=== PATIENT | female | born 1930 | race Two or more races ===

== ENCOUNTER 2019-03-04 10:40 | Outpatient (CLI) | payer MEDICARE, MEDICAID ==
--- NOTE | 2019-03-04 13:43 | Diagnostic Imaging Report ---
Indication: Neck pain. Technique: Continuous helical imaging of the neck was obtained transaxially from the skull base to the upper thoracic spine. 2-D coronal and sagittal reformatted images were obtained. Total Dose length Product (DLP): 595.[address] Dose Index Volume (CTDIvol): 19.21 mGy Comparison: None Findings: The aerodigestive tract appear symmetric and essentially normal. There is no obvious mass identified. There is some asymmetry at the level of the oral pharynx which may be positional in nature as the patient's head is turned toward the left side. The head and neck are not completely symmetric on this study. The epiglottis and aryepiglottic folds appear normal. The parapharyngeal fat appear symmetric. There is no adenopathy. The parotid and submandibular glands and spaces are unremarkable. Some degenerative disease of the cervical spine noted. Calcification of the carotid bifurcations demonstrated within the neck. The larynx and subglottic airway appear clear. There is a rim calcified lesion in the right thyroid lobe measuring about 1.2 cm. This may be further evaluated with ultrasound if needed. The cervical, visualized portion of the esophagus is grossly unremarkable. The aorta is mildly calcified. Lung apices appear clear. IMPRESSION: Essentially negative noncontrast CT of the neck. No definite findings to account for the given history of dysphagia on this examination. 1.2 cm heavily calcified right thyroid nodule or cyst. Atherosclerotic vascular disease The CT scanner at [facility] is accredited by the [employer] and the scans are performed using dose optimization techniques as appropriate to a performed exam including Automatic Exposure control.
== END 2019-03-04 12:40 | disposition home or self-care (01) ==
LOC: CAT 10:40
DX: M54.2 Cervicalgia (principal); I70.90 Unspecified atherosclerosis
CPT/HCPCS: 70490

== ENCOUNTER 2020-02-24 09:40 | Inpatient (IN) | payer MEDICARE, MEDICAID ==
[~2020-02-24] VITALS: Ht 154.9 cm; Wt 57.0 kg
[2020-02-24 10:00] VITALS: BP 184/96
[2020-02-24] MEDS ORDERED: EPINEPHrine 1mg/1ml Amp IM ONE (10:00)
[2020-02-24] MEDS ORDERED: Solu-MEDROL 125mg Inj IVP ONE (10:00)
[2020-02-24] MEDS ORDERED: Ipratropium 0.02% Inh Soln 2.5ml UD HHN ONE (10:00)
[2020-02-24 10:17] LABS: BASOPHILS % (AUTO) 1.9 % (0.0-2.0); EOSINOPHILS % (AUTO) 9.6 % (0.0-3.0); HEMATOCRIT 43.1 % (37.0-47.0); HEMOGLOBIN 14.1 G/DL (12.0-16.0); MEAN CORPUSCULAR VOLUME 79 FL (80-99); MONOCYTES % (AUTO) 7.1 % (1.0-10.0); NEUTROPHILS % (AUTO) 62.5 % (45.0-75.0); PLATELET COUNT 313 K/UL (150-450); RED BLOOD COUNT 5.42 M/UL (4.20-5.40); RED CELL DISTRIBUTION WIDTH 12.3 % (11.6-14.8); WHITE BLOOD COUNT 15.4 K/UL (4.8-10.8)
--- NOTE | 2020-02-24 10:26 | Emergency Room Report ---
History of Present Illness General Chief Complaint: Dyspnea/Respdistress Source: Patient Present Illness HPI Patient presents with severe respiratory distress that began this morning. She has been using her inhaler. She has a history of COPD and is on home oxygen at 3 L 3 L/min. She denies any fevers or chills or productive cough. She denies any chest pain. There is no nausea, vomiting or diarrhea. The patient is extremely dyspneic and it is difficult to obtain history from her except as reported by daughter who is present with her. The patient denies pain at this time in her body. She is anxious. Patient with history of asthma, hypertension and COPD. Allergies: Coded Allergies: No Known Allergies (Unverified , 02/24/20) COVID-19 Screening Contact w/high risk pt: No Experienced COVID-19 symptoms?: No COVID-19 Testing performed APPLICATION INTERNSHIP: No Patient History Limited by: medical condition Past Medical History: see triage record, old chart reviewed Social History: Denies: smoking Social History Narrative From home and cared for by daughter Reviewed Nursing Documentation: PMH: Agreed; PSxH: Agreed Nursing Documentation-PMH Past Medical History: No History, Except For Hx Asthma: Yes Review of Systems All Other Systems: limited Physical Exam Vital Signs Date Time Temp Pulse Resp B/P (MAP) Pulse Ox O2 Delivery O2 Flow Rate FiO2 02/24/20 09:52 97.7 96 30 100 Nasal Cannula 3.0 Sp02 EP Interpretation: reviewed, normal General Appearance: alert, severe distress Head: normocephalic Eyes: bilateral eye normal inspection, bilateral eye PERRL ENT: moist mucus membranes Neck: supple Respiratory: respiratory distress, decreased breath sounds, accessory muscle use, wheezing, expiration, inspiration Cardiovascular #1: regular rate, rhythm, no edema Cardiovascular #2: 2+ radial (L) Gastrointestinal: normal inspection, non tender, no mass, non-distended, decreased bowel sounds Genitourinary: no CVA tenderness Musculoskeletal: back normal, normal range of motion, no calf tenderness Neurologic: alert, oriented x3, grossly normal Psychiatric: anxious Skin: no rash, warm/dry Procedures Critical Care Time Critical Care Time Total Critical Care Time: 120 min bedside evaluation and treatment excludes procedures (EKG). Reason for critical care: Respiratory distress arrest and respiratory failure, repeated evaluations and discussions with physicians and respiratory therapy, treatment of non-STEMI and hypertension Possible complications: hypotension, hypertension, RI, shock, arrhythmias, metabolic acidosis, end organ damage, respiratory failure. Interventions: Use of only inhaler, IM epinephrine, Solu-Medrol, breathing treatments, BiPAP, repeat evaluations, aspirin, Nitropaste, metoprolol Course: Patient presented in extremis with severe bronchospasm. Unable to give breathing treatments or BiPAP until COVID-19 determined. Patient given her own inhaler and IM epinephrine. Some improvement with this but still with increased work with breathing. COVID-19 returns negative. Breathing treatments and BiPAP ordered. Repeat evaluation the patient still with increased work with breathing is BiPAP not instituted. Discussion with respiratory therapy of the need of BiPAP. Lab called with positive troponin. Aspirin Nitropaste and metoprolol administered as patient also hypertensive. Discussion with daughter. Discussion with HMO physician. Discussion with admitting physician with admitting physician. Improvement on BiPAP but blood pressure still high. Metoprolol repeated. Patient improved with aggressive care. Consultations: nursing staff, EMS, family, respiratory therapy therapy, HMO physician, admitting physician Performed by: Dr. Franco Tolerated well condition = critical Medical Decision Making Diagnostic Impression: Primary Impression: Respiratory failure Qualified Codes: J96.02 - Acute respiratory failure with hypercapnia Additional Impressions: Asthma with status asthmaticus in adult Qualified Codes: J45.52 - Severe persistent asthma with status asthmaticus NSTEMI (non-ST elevated myocardial infarction) Renal insufficiency Hypertensive urgency ER Course Patient with severe respiratory distress. Differential includes status asthmaticus, exacerbation COPD, pneumonia, acute myocardial infarction, pulmonary embolus amongst others. Patient extremis. Unable to give breathing treatments or BiPAP until COVID-19 determined. IM epi an use of own inhaler. Magnesium also used. Patient evaluated with EKG, chest x-ray and labs. EKG ST P pulmonale. Chest x-ray no infiltrates. COPD. Labs with elevated white count with eosinophilia however no left shift. Renal insufficiency. Slight improved 1026. Discussed with HMO physician. Discussed with primary physician. Discussed with daughter. Called + troponin. aspirin, nitrobid and metoprolol ordered. [place] also given 1103 COVID-19 test negative. Requested breathing treatments and BiPAP. I had asked for BiPAP but the communication didn't go through. Still with increased work with breathing after breathing treatments. BiPAP still needed. Still hypertensive. Metoprolol repeated. 1158 As the patient is afebrile without productive cough and there are no infiltrates antibiotics are not indicated even though there is a leukocytosis. Blood cultures were ordered. Patient improved on BiPAP. Sleeping. End-tidal CO2 35. Due to non-STEMI and respiratory distress that is improved however on BiPAP patient deemed unstable for transfer at this time. Patient admitted to stepdown unit. Laboratory Tests Test 02/24/20 10:10 02/24/20 10:40 02/24/20 12:50 White Blood Count 15.4 K/UL (4.8-10.8) H Red Blood Count 5.42 M/UL (4.20-5.40) H Hemoglobin 14.1 G/DL (12.0-16.0) Hematocrit 43.1 % (37.0-47.0) Mean Corpuscular Volume 79 FL (80-99) L Mean Corpuscular Hemoglobin 26.1 PG (27.0-31.0) L Mean Corpuscular Hemoglobin Concent 32.8 G/DL (32.0-36.0) Red Cell Distribution Width 12.3 % (11.6-14.8) Platelet Count 313 K/UL (150-450) Mean Platelet Volume 6.5 FL (6.5-10.1) Neutrophils (%) (Auto) 62.5 % (45.0-75.0) Lymphocytes (%) (Auto) 19.0 % (20.0-45.0) L Monocytes (%) (Auto) 7.1 % (1.0-10.0) Eosinophils (%) (Auto) 9.6 % (0.0-3.0) H Basophils (%) (Auto) 1.9 % (0.0-2.0) Prothrombin Time 10.6 SEC (9.30-11.50) Prothrombin Time INR 1.0 (0.9-1.1) Activated Partial Thromboplast Time 30 SEC (23-33) Sodium Level 136 MMOL/L (136-145) Potassium Level 3.6 MMOL/L (3.5-5.1) Chloride Level 96 MMOL/L (98-107) L Carbon Dioxide Level 38 MMOL/L (21-32) H Anion Gap 2 mmol/L (5-15) L Blood Urea Nitrogen 19 mg/dL (7-18) H Creatinine 1.4 MG/DL (0.55-1.30) H Estimated Glomerular Filtration Rate 35.5 mL/min (>60) Glucose Level 311 MG/DL (74-106) H Calcium Level 9.7 MG/DL (8.5-10.1) Total Bilirubin 0.9 MG/DL (0.2-1.0) Aspartate Amino Transferase (AST) 31 U/L (15-37) Alanine Aminotransferase (ALT) 28 U/L (12-78) Alkaline Phosphatase 88 U/L (46-116) Troponin I 0.147 ng/mL (0.000-0.056) Pro-B-Type Natriuretic Peptide 745 pg/mL (0-125) H Total Protein 8.5 G/DL (6.4-8.2) H Albumin 4.2 G/DL (3.4-5.0) Globulin 4.3 g/dL Albumin/Globulin Ratio 1.0 (1.0-2.7) Lactic Acid Level 1.60 mmol/L (0.4-2.0) Arterial Blood pH 7.398 (7.350-7.450) Arterial Blood Partial Pressure CO2 46.2 mmHg (35.0-45.0) H Arterial Blood Partial Pressure O2 59.2 mmHg (75.0-100.0) L Arterial Blood HCO3 27.8 mmol/L (22.0-26.0) H Arterial Blood Oxygen Saturation 90.4 % (95-100) L Arterial Blood Base Excess 2.4 (-2-2) H Jeffry Test Positive Microbiology Date/Time Source Procedure Growth Status 02/24/20 10:16 Nasopharynx SARS-CoV-2 RdRp Gene Assay - Final Complete EKG Diagnostic Results Rate: tachycardiac Rhythm: NSR ST Segments: no acute changes Rhythm Strip Diag. Results EP Interpretation: yes Rhythm: no PVC's, no ectopy, other - ST Chest X-Ray Diagnostic Results Chest X-Ray Diagnostic Results : Chest X-Ray Ordered: Yes # of Views/Limited/Complete: 1 View Indication: Shortness of Breath Interpretation: no consolidation, no effusion, no pneumothorax, other - COPD Electronically Signed by: Electronically signed by Rohan Franco MD Last Vital Signs Date Time Temp Pulse Resp B/P (MAP) Pulse Ox O2 Delivery O2 Flow Rate FiO2 9/10/20 16:00 3.0 30 02/24/20 16:00 88 02/24/20 16:00 97.9 21 175/90 (118) 98 02/24/20 16:00 Bi-pap Status: improved Disposition: ADMITTED INPATIENT Condition: Critical Scripts Unable to Obtain Active Prescriptions or Reported Meds Referrals: Ramiro Cochran MD (PCP) Rohan Franco MD Feb 24, 2020 10:26
[2020-02-24 10:35] LABS: ANION GAP 2 mmol/L (5-15); BLOOD UREA NITROGEN 19 mg/dL (7-18); CALCIUM 9.7 MG/DL (8.5-10.1); CARBON DIOXIDE 38 MMOL/L (21-32); CHLORIDE 96 MMOL/L (98-107); CREATININE 1.4 MG/DL (0.55-1.30); POTASSIUM 3.6 MMOL/L (3.5-5.1); SODIUM 136 MMOL/L (136-145)
[2020-02-24 10:45] LABS: ALANINE AMINOTRANSFERASE 28 U/L (12-78); ALBUMIN 4.2 G/DL (3.4-5.0); ALKALINE PHOSPHATASE 88 U/L (46-116); ASPARTATE AMINO TRANSFERASE 31 U/L (15-37); BILIRUBIN,TOTAL 0.9 MG/DL (0.2-1.0)
[2020-02-24] MEDS ORDERED: Losartan 25mg tab ORAL ONE (10:45)
[2020-02-24] MEDS ORDERED: Nitroglycerin 2% oint pkt TOPIC ONE (10:45)
[2020-02-24] MEDS ORDERED: Metoprolol Tartrate 5mg/5ml Inj IVP STA ×2 (10:45→12:01)
[2020-02-24] MEDS: Albuterol ud Inhalation HHN SCH ×8 (10:50→23:00)
--- NOTE | 2020-02-24 11:30 | Diagnostic Imaging Report ---
Procedure: XRAY Chest 1v Reason for study: Reason For Exam: DYSPNEA Comparison films: None. FINDINGS: A single one view chest is obtained. Vascularity is normal. The lung duval are clear bilaterally. Cardiac and mediastinal silhouette are within normal limits. CP angles are sharp. The bony thorax appear unremarkable. IMPRESSION: NO ACUTE CARDIOPULMONARY DISEASE.
[2020-02-24 11:59] VITALS: BP 202/77
--- NOTE | 2020-02-24 12:55 | Consultation ---
Consult Note Consult Note Vital Signs -Extended Height: 60 inches Weight: 125 pounds Temperature: 97.7 degrees F ( oral) Pulse rate: 87 /min Pulse rhythm: regular Respirations: 16 /min O2 Sat: 94% Blood Pressure: 176/84 mm Hg Calculations Body Mass Index: 24.50 Body Surface Area (m2): 1.53 History of Present Illness 89 Years Old female patient presents today for a follow up in the office. Her daughter states the patient was not able to sleep last night due toa dry cough, severe shortness of breath and wheezing. Patient noted to be in distress and brought over to the ER. She was noted to be in severe respiratory distress and placed on BIPAP Patient with need for oxygen and has has had noted congestion. No ill contacts and COVID negative by rapid swab. no nausea or vomiting. She is cared for by family. Active Medications (reviewed today): FAMOTIDINE 20 MG ORAL TABLET (FAMOTIDINE) Take one tablet daily HYDROXYZINE HCL 25 MG ORAL TABLET (HYDROXYZINE HCL) Take one tablet two times daily BACLOFEN 10 MG ORAL TABLET (BACLOFEN) Take one tablet two times daily LOSART[place] POTASSIUM 100 MG ORAL TABLET (LOSARTAN POTASSIUM) Take one tablet daily DOK 100 MG ORAL CAPSULE (DOCUSATE SODIUM) Take one tablet two times daily EASY COMFORT INSULIN SYRINGE 30G X 5/16" 0.5 ML (INSULIN SYRINGE-NEEDLE U-100) ULTRACARE PEN NEEDLES 32G X 4 MM (INSULIN PEN NEEDLE) DICLOFENAC SODIUM 1 % TRANSDERMAL GEL (DICLOFENAC SODIUM) TRAVATAN Z 0.004 % OPHTHALMIC SOLUTION (TRAVOPROST) HYDROCHLOROTHIAZIDE 50 MG ORAL TABLET (HYDROCHLOROTHIAZIDE) 1 daily PERFOROMIST 20 MCG/2ML INHALATION NEBULIZATION SOLUTION (FORMOTEROL FUMARATE) HHN BID YUPELRI 175 MCG/3ML INHALATION SOLUTION (REVEFENACIN) use 1 vial nebulized qd HYOSCYAMINE SULFATE 0.125 MG ORAL TABLET (HYOSCYAMINE SULFATE) PRN VITAMIN B-6 100 MG ORAL TABLET (PYRIDOXINE HCL) Take one tablet two times daily OYSCO 500 500 MG ORAL TABLET (OYSTER SHELL) Take one tablet daily LANTUS SOLOSTAR 100 UNIT/ML SUBCUTANEOUS SOLUTION PEN-INJECTOR (INSULIN GLARGINE ) 30 units in pm NOVOLOG FLEXPEN 100 UNIT/ML SUBCUTANEOUS SOLUTION PEN-INJECTOR (INSULIN ASPART) 20 units in morning and 20 in the afternoon ALBUTEROL SULFATE (2.5 MG/3ML) 0.083% INHALATION NEBULIZATION SOLUTION ( ALBUTEROL SULFATE) Q4 PRN VENTOLIN HFA 108 (90 BASE) MCG/ACT INHALATION AEROSOL SOLUTION (ALBUTEROL SULFATE) 1 puff prn Current Allergies (reviewed today): No known allergies No Known Drug Allergies Past History Past Medical History (reviewed - no changes required): hypertension Diabetes hypercholesterolemia COPD with chronic hypoxemia 05/20/18 Hospital admission for acute respiratory failure asthma Surgical History (reviewed - no changes required): resection for ovarian cancer total hysterectomy per patient's daughter Family History (reviewed - no changes required): Father ; healthy Mother ; healthy Social History (reviewed - no changes required): ; 12 children; born in [facility] Risk Factors: Smoked Tobacco Use: Former smoker Cigarettes: Yes -- 1 pack(s) per day, Pack-Years: 1945 Year Quit: 1997 Years Since Last Quit: Caffeine Use: 1 drinks per day PHYSICAL WDWN NAD reduced breath sounds bilaterally with noted wheeze [id number] without MRG NABS nontender no HSM no CCE nonfocal weak dyspneic on BIPAP Labs Test 02/24/20 10:10 02/24/20 10:40 White Blood Count 15.4 K/UL (4.8-10.8) Red Blood Count 5.42 M/UL (4.20-5.40) Hemoglobin 14.1 G/DL (12.0-16.0) Hematocrit 43.1 % (37.0-47.0) Mean Corpuscular Volume 79 FL (80-99) Mean Corpuscular Hemoglobin 26.1 PG (27.0-31.0) Mean Corpuscular Hemoglobin Concent 32.8 G/DL (32.0-36.0) Red Cell Distribution Width 12.3 % (11.6-14.8) Platelet Count 313 K/UL (150-450) Mean Platelet Volume 6.5 FL (6.5-10.1) Neutrophils (%) (Auto) 62.5 % (45.0-75.0) Lymphocytes (%) (Auto) 19.0 % (20.0-45.0) Monocytes (%) (Auto) 7.1 % (1.0-10.0) Eosinophils (%) (Auto) 9.6 % (0.0-3.0) Basophils (%) (Auto) 1.9 % (0.0-2.0) Prothrombin Time 10.6 SEC (9.30-11.50) Prothromb Time International Ratio 1.0 (0.9-1.1) Activated Partial Thromboplast Time 30 SEC (23-33) Sodium Level 136 MMOL/L (136-145) Potassium Level 3.6 MMOL/L (3.5-5.1) Chloride Level 96 MMOL/L (98-107) Carbon Dioxide Level 38 MMOL/L (21-32) Anion Gap 2 mmol/L (5-15) Blood Urea Nitrogen 19 mg/dL (7-18) Creatinine 1.4 MG/DL (0.55-1.30) Estimat Glomerular Filtration Rate 35.5 mL/min (>60) Glucose Level 311 MG/DL (74-106) Calcium Level 9.7 MG/DL (8.5-10.1) Total Bilirubin 0.9 MG/DL (0.2-1.0) Aspartate Amino Transf (AST/SGOT) 31 U/L (15-37) Alanine Aminotransferase (ALT/SGPT) 28 U/L (12-78) Alkaline Phosphatase 88 U/L (46-116) Troponin I 0.147 ng/mL (0.000-0.056) Pro-B-Type Natriuretic Peptide 745 pg/mL (0-125) Total Protein 8.5 G/DL (6.4-8.2) Albumin 4.2 G/DL (3.4-5.0) Globulin 4.3 g/dL Albumin/Globulin Ratio 1.0 (1.0-2.7) Lactic Acid Level 1.60 mmol/L (0.4-2.0) IMPRESSION Acute respiratory failure leukocytosis possible sepsis Acute renal failure diabetes COPD with exacerbation PLAN care noted IV antibiotics respiratory care BIPAP management home meds supportive care suction ERIKA care oxygen therapy prognosis guarded impression, plan, and exam edited and reviewed in detail care discussed with Ramiro Lanza MD Feb 24, 2020 12:55
[2020-02-24 13:02] VITALS: BP 162/87
[2020-02-24 16:00] VITALS: BP 175/90
[2020-02-24] MEDS ORDERED: Albuterol ud Inhalation HHN PRN (17:45)
[2020-02-24 20:00] VITALS: BP 150/70
[2020-02-24] MEDS: HydrOXYzine tab 25mg tab ORAL SCH (20:54)
[2020-02-24] MEDS: Heparin 5000 units/ml inj SUBQ SCH (20:55)
[2020-02-24] MEDS: Solu-MEDROL 125mg Inj IVP SCH (20:55)
[2020-02-24] MEDS: NovoLOG Insulin Flexpen SUBQ SCH (20:56)
[2020-02-24] MEDS ORDERED: cefTRIAXone 1 GM in D5W 55 ML IVPB SCH (21:00)
[2020-02-25] VITALS (7 sets, daily range): BP systolic 135–163; BP diastolic 65–76
[2020-02-25] MEDS: Albuterol ud Inhalation HHN SCH ×6 (03:32→22:40)
[2020-02-25 05:14] LABS: BASOPHILS % (AUTO) 0.5 % (0.0-2.0); EOSINOPHILS % (AUTO) 0.2 % (0.0-3.0); HEMATOCRIT 42.6 % (37.0-47.0); HEMOGLOBIN 13.7 G/DL (12.0-16.0); LYMPHOCYTES % (AUTO) 12.4 % (20.0-45.0); MEAN CORPUSCULAR VOLUME 79 FL (80-99); MONOCYTES % (AUTO) 2.3 % (1.0-10.0); NEUTROPHILS % (AUTO) 84.6 % (45.0-75.0); PLATELET COUNT 295 K/UL (150-450); RED BLOOD COUNT 5.38 M/UL (4.20-5.40); RED CELL DISTRIBUTION WIDTH 12.3 % (11.6-14.8); WHITE BLOOD COUNT 10.2 K/UL (4.8-10.8)
[2020-02-25] MEDS: NovoLOG Insulin Flexpen SUBQ SCH ×4 (05:33→20:41)
[2020-02-25 05:53] LABS: CALCIUM 9.8 MG/DL (8.5-10.1); CREATININE 1.6 MG/DL (0.55-1.30); POTASSIUM 3.3 MMOL/L (3.5-5.1)
[2020-02-25] MEDS: Losartan 50mg tab ORAL SCH (08:11)
[2020-02-25] MEDS: HydrOXYzine tab 25mg tab ORAL SCH ×2 (08:11→20:38)
[2020-02-25] MEDS: Solu-MEDROL 125mg Inj IVP SCH ×2 (08:13→20:38)
[2020-02-25] MEDS: Heparin 5000 units/ml inj SUBQ SCH ×2 (08:14→20:39)
--- NOTE | 2020-02-25 08:33 | Pulmonology Progress Note ---
Subjective Allergies: Coded Allergies: No Known Allergies (Unverified , 02/24/20) Subjective on BIPAP overnight events reviewed on IV steroids Objective Last 24 Hour Vital Signs Date Time Temp Pulse Resp B/P (MAP) Pulse Ox O2 Delivery O2 Flow Rate FiO2 02/25/20 08:11 146/76 02/25/20 07:22 81 20 94 Bi-Pap 30 84 18 99 30 02/25/20 04:00 Bi-pap 3.0 02/25/20 04:00 30 02/25/20 04:00 97.9 67 18 148/70 (96) 97 02/25/20 03:36 81 02/25/20 03:32 96 21 95 Bi-Pap 30 87 17 99 30 02/25/20 00:00 Bi-pap 3.0 02/25/20 00:00 97.5 69 18 140/65 (90) 98 02/24/20 23:29 89 02/24/20 23:26 84 17 95 30 02/24/20 20:00 30 02/24/20 20:00 81 02/24/20 20:00 Bi-pap 3.0 02/24/20 20:00 97.7 75 20 150/70 (96) 96 02/24/20 19:43 80 18 96 Bi-Pap 30 82 17 96 30 02/24/20 16:00 3.0 30 02/24/20 16:00 88 02/24/20 16:00 97.9 79 21 175/90 (118) 98 02/24/20 16:00 88 02/24/20 16:00 Bi-pap 3.0 02/24/20 14:56 84 18 96 30 02/24/20 14:48 Bi-Pap 3.0 02/24/20 13:55 77 21 100 Bi-Pap 30 02/24/20 13:53 77 21 100 30 02/24/20 13:24 97.7 75 20 162/81 100 Bi-pap 30 02/24/20 13:02 97.7 75 20 162/87 100 Bi-pap 3.0 30 02/24/20 12:09 80 23 99 30 02/24/20 12:09 78 196/85 02/24/20 11:59 97.8 78 24 202/77 100 Nasal Cannula 3.0 32 02/24/20 11:36 88 27 100 Nasal Cannula 3.0 32 85 26 100 02/24/20 11:28 227/104 02/24/20 11:27 227/104 02/24/20 11:26 97 227/104 02/24/20 11:19 83 25 100 78 25 100 02/24/20 10:57 75 28 100 Nasal Cannula 3.0 32 82 28 100 02/24/20 10:00 97.7 96 32 184/96 100 Nasal Cannula 3.0 02/24/20 10:00 96 32 Nasal Cannula 3.0 02/24/20 09:52 97.7 96 30 100 Nasal Cannula 3.0 Intake and Output 02/24/20 02/25/20 19:00 07:00 Intake Total 140 ml 255 ml Balance 140 ml 255 ml Intake Oral 40 ml 200 ml IV Total 100 ml 55 ml # Voids 1 4 Objective WDWN NAD reduced breath sounds bilaterally with scattered wheeze [id number] without MRG NABS nontender no HSM no CCE nonfocal weak overall Microbiology Date/Time Source Procedure Growth Status 02/24/20 10:16 Nasopharynx SARS-CoV-2 RdRp Gene Assay - Final Complete Laboratory Tests 02/24/20 10:10: White Blood Count 15.4H, Red Blood Count 5.42H, Hemoglobin 14.1, Hematocrit 43.1 , Mean Corpuscular Volume 79L, Mean Corpuscular Hemoglobin 26.1L, Mean Corpuscular Hemoglobin Concent 32.8, Red Cell Distribution Width 12.3, Platelet Count 313, Mean Platelet Volume 6.5, Neutrophils (%) (Auto) 62.5, Lymphocytes (% ) (Auto) 19.0L, Monocytes (%) (Auto) 7.1, Eosinophils (%) (Auto) 9.6H, Basophils (%) (Auto) 1.9, Prothrombin Time 10.6, Prothromb Time International Ratio 1.0, Activated Partial Thromboplast Time 30, Sodium Level 136, Potassium Level 3.6, Chloride Level 96L, Carbon Dioxide Level 38H, Anion Gap 2L, Blood Urea Nitrogen 19H, Creatinine 1.4H, Estimat Glomerular Filtration Rate 35.5, Glucose Level 311H, Calcium Level 9.7, Total Bilirubin 0.9, Aspartate Amino Transf (AST/SGOT) 31, Alanine Aminotransferase (ALT/SGPT) 28, Alkaline Phosphatase 88, Troponin I 0.147H, Pro-B-Type Natriuretic Peptide 745H, Total Protein 8.5H, Albumin 4.2, Globulin 4.3, Albumin/Globulin Ratio 1.0 02/24/20 10:40: Lactic Acid Level 1.60 02/24/20 12:50: Arterial Blood pH 7.398, Arterial Blood Partial Pressure CO2 46.2H, Arterial Blood Partial Pressure O2 59.2L, Arterial Blood HCO3 27.8H, Arterial Blood Oxygen Saturation 90.4L, Arterial Blood Base Excess 2.4H, Jeffry Test Positive 02/24/20 19:00: Troponin I 0.114H 02/24/20 20:49: POC Whole Blood Glucose 341H 02/25/20 02:50: White Blood Count 10.2, Red Blood Count 5.38, Hemoglobin 13.7, Hematocrit 42.6, Mean Corpuscular Volume 79L, Mean Corpuscular Hemoglobin 25.5L, Mean Corpuscular Hemoglobin Concent 32.2, Red Cell Distribution Width 12.3, Platelet Count 295, Mean Platelet Volume 6.1L, Neutrophils (%) (Auto) 84.6H, Lymphocytes (%) (Auto) 12.4L, Monocytes (%) (Auto) 2.3, Eosinophils (%) (Auto) 0.2, Basophils (%) (Auto) 0.5, Sodium Level 138, Potassium Level 3.3L, Chloride Level 96L, Carbon Dioxide Level 31, Anion Gap 11, Blood Urea Nitrogen 23H, Creatinine 1.6H, Estimat Glomerular Filtration Rate 30.4, Glucose Level 317H, Calcium Level 9.8, Troponin I 0.114H 02/25/20 05:31: POC Whole Blood Glucose [Pending] Current Medications Medications (Trade) Dose Ordered Sig/Precious Route PRN Reason Start Time Stop Time Status Last Admin Dose Admin Acetaminophen (Tylenol) 650 mg Q4H PRN ORAL Mild Pain (Pain Scale 1-3) 02/24/20 17:45 03/25/20 17:44 02/25/20 05:33 Acetaminophen (Tylenol) 650 mg Q4H PRN ORAL Fever (>100.0) 02/24/20 17:45 03/25/20 17:44 Al Hydroxide/Mg Hydroxide (Mylanta) 30 ml Q4H PRN ORAL Dyspepsia 02/24/20 17:45 03/25/20 17:44 Albuterol Sulfate (Proventil) 2.5 mg Q4H PRN HHN Shortness of Breath 02/24/20 17:45 02/29/20 17:44 Albuterol Sulfate (Proventil) 2.5 mg Q4HRT HHN 02/24/20 19:00 02/29/20 18:59 02/25/20 07:22 Baclofen (Lioresal) 10 mg BID ORAL 02/25/20 09:00 03/26/20 08:59 02/25/20 08:12 Ceftriaxone Sodium 1 gm/ Dextrose 55 ml @ 110 mls/hr Q24H IVPB 02/24/20 21:00 03/02/20 20:59 02/24/20 20:54 Clonidine HCl (Catapres Tab) 0.1 mg Q4H PRN ORAL For High Blood Pressure 02/25/20 01:15 05/25/20 01:14 Dextrose (Dextrose 50%) 25 ml Q30M PRN IV Hypoglycemia 02/24/20 19:15 05/24/20 19:14 Dextrose (Dextrose 50%) 50 ml Q30M PRN IV Hypoglycemia 02/24/20 19:15 05/24/20 19:14 Famotidine (Pepcid) 20 mg DAILY ORAL 02/25/20 09:00 05/25/20 08:59 02/25/20 08:12 Heparin Sodium (Porcine) (Heparin 5000 units/ml) 5,000 units EVERY 12 HOURS SUBQ 02/24/20 21:00 04/09/20 20:59 02/25/20 08:14 Hydroxyzine HCl (Atarax) 25 mg EVERY 12 HOURS ORAL 02/24/20 21:00 03/25/20 20:59 02/25/20 08:11 Insulin Aspart (NovoLOG) BEFORE MEALS AND HS SUBQ 02/24/20 21:00 05/24/20 20:59 02/25/20 05:33 Losartan Potassium (Cozaar) 100 mg DAILY ORAL 02/25/20 09:00 03/26/20 08:59 Methylprednisolone Sodium Succinate (Solu-MEDROL) 60 mg EVERY 12 HOURS IVP 02/24/20 21:00 05/24/20 20:59 02/25/20 08:13 Pantoprazole (Protonix) 40 mg DAILY ORAL 02/25/20 09:00 03/26/20 08:59 02/25/20 08:12 Potassium Chloride (K-Dur) 40 meq ONCE ONCE ORAL 02/25/20 09:00 02/25/20 09:01 02/25/20 08:11 Assessment/Plan Assessment/Plan IMPRESSION Acute respiratory failure chronic hypercapnia and hypoxemia leukocytosis possible sepsis Acute renal failure diabetes COPD with exacerbation PLAN care noted IV antibiotics respiratory care BIPAP management home meds to continue supportive care suction ERIKA care oxygen therapy prognosis guarded DVT prophylaxis impression, plan, and exam edited and reviewed in detail care discussed with Ramiro Lanza MD Feb 25, 2020 08:33
--- NOTE | 2020-02-25 20:36 | General Progress Note ---
Assessment/Plan Problem List: (1) Respiratory failure ICD Codes: J96.90 - Respiratory failure, unspecified, unspecified whether with hypoxia or hypercapnia SNOMED: 947725401 Qualifiers: Qualified Codes: J96.02 - Acute respiratory failure with hypercapnia (2) NSTEMI (non-ST elevated myocardial infarction) ICD Codes: I21.4 - Non-ST elevation (NSTEMI) myocardial infarction SNOMED: 82289830 (3) Hypertensive urgency ICD Codes: I16.0 - Hypertensive urgency SNOMED: 621910247 (4) Asthma with status asthmaticus in adult ICD Codes: J45.902 - Unspecified asthma with status asthmaticus SNOMED: 718831362 Qualifiers: Qualified Codes: J45.52 - Severe persistent asthma with status asthmaticus Status: stable Assessment/Plan: iv steroids resp rx serial enzymes check duplex check echo dvt/stress ulcer prophylaxis Subjective ROS Limited/Unobtainable: No Constitutional: Reports: malaise, weakness HEENT: Reports: no symptoms Respiratory: Reports: cough, shortness of breath, wheezing Gastrointestinal/Abdominal: Reports: no symptoms Genitourinary: Reports: no symptoms Neurologic/Psychiatric: Reports: no symptoms Endocrine: Reports: no symptoms Hematologic/Lymphatic: Reports: no symptoms Allergies: Coded Allergies: No Known Allergies (Unverified , 02/24/20) All Systems: reviewed and negative except above Subjective +sob and wheezing. covid neg. wbc trending down. elevated trop. no chest pain . Objective Last 24 Hour Vital Signs Date Time Temp Pulse Resp B/P (MAP) Pulse Ox O2 Delivery O2 Flow Rate FiO2 02/25/20 19:44 80 19 94 Bi-Pap 30 83 17 98 30 02/25/20 16:00 98.4 82 20 150/68 (95) 96 02/25/20 16:00 30 02/25/20 16:00 Bi-pap 02/25/20 16:00 80 02/25/20 15:33 70 18 96 Bi-Pap 30 74 19 98 30 02/25/20 12:17 163/73 02/25/20 12:00 Bi-pap 02/25/20 12:00 30 02/25/20 12:00 85 02/25/20 12:00 97.7 79 20 163/73 (103) 99 02/25/20 11:31 78 24 95 Bi-Pap 30 82 18 100 30 9/11/20 10:17 98.1 83 20 146/76 (99) 96 02/25/20 08:11 146/76 02/25/20 08:00 98.1 83 20 146/76 (99) 96 02/25/20 08:00 30 02/25/20 08:00 100 02/25/20 08:00 Bi-pap 02/25/20 07:22 81 20 94 Bi-Pap 30 84 18 99 30 02/25/20 04:00 Bi-pap 3.0 02/25/20 04:00 30 02/25/20 04:00 97.9 67 18 148/70 (96) 97 02/25/20 03:36 81 02/25/20 03:32 96 21 95 Bi-Pap 30 87 17 99 30 02/25/20 00:00 Bi-pap 3.0 02/25/20 00:00 97.5 69 18 140/65 (90) 98 02/24/20 23:29 89 02/24/20 23:26 84 17 95 30 Intake and Output 02/24/20 02/25/20 19:00 07:00 Intake Total 140 ml 255 ml Balance 140 ml 255 ml Intake Oral 40 ml 200 ml IV Total 100 ml 55 ml # Voids 1 4 Laboratory Tests 02/24/20 20:49: POC Whole Blood Glucose 341H 02/25/20 02:50: White Blood Count 10.2, Red Blood Count 5.38, Hemoglobin 13.7, Hematocrit 42.6, Mean Corpuscular Volume 79L, Mean Corpuscular Hemoglobin 25.5L, Mean Corpuscular Hemoglobin Concent 32.2, Red Cell Distribution Width 12.3, Platelet Count 295, Mean Platelet Volume 6.1L, Neutrophils (%) (Auto) 84.6H, Lymphocytes (%) (Auto) 12.4L, Monocytes (%) (Auto) 2.3, Eosinophils (%) (Auto) 0.2, Basophils (%) (Auto) 0.5, Sodium Level 138, Potassium Level 3.3L, Chloride Level 96L, Carbon Dioxide Level 31, Anion Gap 11, Blood Urea Nitrogen 23H, Creatinine 1.6H, Estimat Glomerular Filtration Rate 30.4, Glucose Level 317H, Calcium Level 9.8, Troponin I 0.114H 02/25/20 05:31: POC Whole Blood Glucose [Pending] 02/25/20 11:00: Troponin I 0.114H 02/25/20 11:46: POC Whole Blood Glucose 326H 02/25/20 12:38: Arterial Blood pH 7.487H, Arterial Blood Partial Pressure CO2 40.3, Arterial Blood Partial Pressure O2 62.8L, Arterial Blood HCO3 29.8H, Arterial Blood Oxygen Saturation 93.0L, Arterial Blood Base Excess 6.0H, Jeffry Test Positive 02/25/20 16:59: POC Whole Blood Glucose 394H Height (Feet): 5 Height (Inches): 1.00 Weight (Pounds): 125 General Appearance: WD/WN, no apparent distress EENT: normal ENT inspection Neck: non-tender, normal alignment, supple Cardiovascular: normal peripheral pulses Respiratory/Chest: chest wall non-tender, expiratory wheezing Abdomen: normal bowel sounds, non tender, soft, no organomegaly Edema: no edema noted Arm (L), no edema noted Arm (R) 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
[2020-02-25] MEDS ORDERED: cefTRIAXone 1 GM in NS 55 ML IVPB SCH (21:00)
[2020-02-26] VITALS: BP 128/74
[2020-02-26] MEDS: Albuterol ud Inhalation HHN SCH ×4 (03:00→19:00)
[2020-02-26 04:00] VITALS: BP_SYST 132; BP_SYST 143; BP_DIAS 78; BP_DIAS 92
[2020-02-26] MEDS: NovoLOG Insulin Flexpen SUBQ SCH ×4 (05:35→20:23)
[2020-02-26 08:00] VITALS: BP 150/65
[2020-02-26] MEDS: Losartan 50mg tab ORAL SCH (08:43)
[2020-02-26] MEDS: Heparin 5000 units/ml inj SUBQ SCH ×2 (08:44→20:21)
[2020-02-26] MEDS: HydrOXYzine tab 25mg tab ORAL SCH ×2 (08:48→20:17)
[2020-02-26] MEDS: Solu-MEDROL 125mg Inj IVP SCH (08:50)
--- NOTE | 2020-02-26 09:05 | General Progress Note ---
Assessment/Plan Problem List: (1) Respiratory failure ICD Codes: J96.90 - Respiratory failure, unspecified, unspecified whether with hypoxia or hypercapnia SNOMED: 491937307 Qualifiers: Qualified Codes: J96.02 - Acute respiratory failure with hypercapnia (2) NSTEMI (non-ST elevated myocardial infarction) ICD Codes: I21.4 - Non-ST elevation (NSTEMI) myocardial infarction SNOMED: 26607035 (3) Hypertensive urgency ICD Codes: I16.0 - Hypertensive urgency SNOMED: 405966287 (4) Asthma with status asthmaticus in adult ICD Codes: J45.902 - Unspecified asthma with status asthmaticus SNOMED: 051322969 Qualifiers: Qualified Codes: J45.52 - Severe persistent asthma with status asthmaticus Status: stable Assessment/Plan: iv steroids resp rx bipap serial enzymes check duplex check echo dvt/stress ulcer prophylaxis monitor bs add levemir Subjective ROS Limited/Unobtainable: No Constitutional: Reports: malaise, weakness HEENT: Reports: no symptoms Cardiovascular: Reports: no symptoms Respiratory: Reports: cough Gastrointestinal/Abdominal: Reports: no symptoms Genitourinary: Reports: no symptoms Neurologic/Psychiatric: Reports: no symptoms Endocrine: Reports: no symptoms Hematologic/Lymphatic: Reports: no symptoms Allergies: Coded Allergies: No Known Allergies (Unverified , 02/24/20) All Systems: reviewed and negative except above Subjective on bipap. no sob. minimal cough. BS elevated. remains on iv steroids. no distress Objective Last 24 Hour Vital Signs Date Time Temp Pulse Resp B/P (MAP) Pulse Ox O2 Delivery O2 Flow Rate FiO2 02/26/20 08:43 176/88 02/26/20 04:00 Bi-pap 02/26/20 04:00 88 02/26/20 04:00 97.9 75 18 143/78 (99) 94 02/26/20 04:00 30 02/26/20 03:20 82 19 97 30 02/26/20 00:00 Bi-pap 02/26/20 00:00 97.7 79 20 128/74 (92) 94 02/26/20 00:00 79 02/25/20 22:40 75 17 95 Bi-Pap 30 79 18 99 30 02/25/20 20:00 30 02/25/20 20:00 97.5 60 21 135/66 (89) 99 9/11/20 20:00 Bi-pap 02/25/20 20:00 78 02/25/20 19:44 80 19 94 Bi-Pap 30 83 17 98 30 02/25/20 16:00 98.4 82 20 150/68 (95) 96 02/25/20 16:00 30 02/25/20 16:00 Bi-pap 02/25/20 16:00 80 02/25/20 15:33 70 18 96 Bi-Pap 30 74 19 98 30 02/25/20 12:17 163/73 02/25/20 12:00 Bi-pap 02/25/20 12:00 30 02/25/20 12:00 85 02/25/20 12:00 97.7 79 20 163/73 (103) 99 02/25/20 11:31 78 24 95 Bi-Pap 30 82 18 100 30 02/25/20 10:17 98.1 83 20 146/76 (99) 96 Intake and Output 02/25/20 02/26/20 19:00 07:00 Intake Total 200 ml 50 ml Output Total 650 ml Balance 200 ml -600 ml Intake Oral 200 ml 50 ml Output Urine Total 650 ml # Voids 2 # Bowel Movements 2 Laboratory Tests 02/25/20 11:00: Troponin I 0.114H 02/25/20 11:46: POC Whole Blood Glucose 326H 02/25/20 12:38: Arterial Blood pH 7.487H, Arterial Blood Partial Pressure CO2 40.3, Arterial Blood Partial Pressure O2 62.8L, Arterial Blood HCO3 29.8H, Arterial Blood Oxygen Saturation 93.0L, Arterial Blood Base Excess 6.0H, Jeffry Test Positive 02/25/20 16:59: POC Whole Blood Glucose 394H 02/25/20 20:33: POC Whole Blood Glucose 317H 02/26/20 03:10: Troponin I 0.090H 02/26/20 05:30: POC Whole Blood Glucose 398H Height (Feet): 5 Height (Inches): 1.00 Weight (Pounds): 125 General Appearance: WD/WN, alert EENT: PERRL/EOMI Neck: normal alignment, supple Cardiovascular: normal rate Respiratory/Chest: lungs clear, normal breath sounds, no respiratory distress, no accessory muscle use Abdomen: normal bowel sounds, non tender, soft, no organomegaly 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
[2020-02-26] MEDS: Levemir Flexpen SUBQ SCH ×2 (10:12→18:38)
--- NOTE | 2020-02-26 11:44 | History and Physical Report ---
DATE OF ADMISSION: 02/24/2020 CHIEF COMPLAINT: Shortness of breath. HISTORY OF PRESENT ILLNESS: The patient is an 89-year-old female. She has a history of hypertensive heart disease, asthma, diabetes, and presented with complaints of cough, wheezing, and shortness of breath. She was placed on BiPAP in the emergency room. Her initial COVID swab was negative. She was pancultured. She has been started on antibiotic therapy. She is now admitted for further evaluation and care. PAST MEDICAL HISTORY: As above. PAST SURGICAL HISTORY: Includes hysterectomy. CURRENT MEDICATIONS: Reconciled and reviewed. ALLERGIES: None. FAMILY HISTORY: None. SOCIAL HISTORY: Negative for alcohol or drugs. The patient was previously a smoker, but quit. REVIEW OF SYSTEMS: GENERAL: No fevers or chills. HEENT: No headaches or visual changes. CARDIOPULMONARY: No chest pain. Positive shortness of breath and wheezing. GASTROINTESTINAL: No nausea or vomiting. GENITOURINARY: No urgency or frequency. MUSCULOSKELETAL: No joint pain or swelling. NEUROLOGIC: No evidence of seizures. PHYSICAL EXAMINATION: VITAL SIGNS: Temperature 98, blood pressure 184/96, pulse 96, respirations 20. GENERAL: The patient is well-developed, no apparent distress. Thin female. HEART: Regular rate and rhythm. LUNGS: Significant for scattered wheezes and rhonchi. ABDOMEN: Soft, nontender, nondistended. EXTREMITIES: Without clubbing, cyanosis, or edema. NEUROLOGIC: The patient is alert. Moves all four extremities. LABORATORY AND DIAGNOSTIC DATA: White count was 15, hemoglobin 14, platelets of 313. Sodium 136, potassium 3.6, chloride 96, bicarb 38, BUN 19, creatinine 1.4. Chest x-ray is clear. ASSESSMENT: This is an 89-year-old female with a history of hypertension, diabetes, asthma, admitted with complaints of shortness of breath secondary to asthma exacerbation, cannot rule out underlying bronchitis. PLAN: Respiratory treatments. Wean BiPAP. Continue IV steroids. Follow up pending cultures. Monitor chest x-ray. Pulmonary consultation. Continue DVT and stress ulcer prophylaxis. Sergio Kee M.D. DR: HECTOR/RAJ JOB#: [id number] CC:
[2020-02-26 12:00] VITALS: BP 157/72
--- NOTE | 2020-02-26 13:38 | Pulmonology Progress Note ---
Subjective ROS Limited/Unobtainable: No Allergies: Coded Allergies: No Known Allergies (Unverified , 02/24/20) All Systems: reviewed and negative except above Subjective on BIPAP overnight events reviewed on IV steroids Objective Last 24 Hour Vital Signs Date Time Temp Pulse Resp B/P (MAP) Pulse Ox O2 Delivery O2 Flow Rate FiO2 02/26/20 12:00 30 02/26/20 12:00 85 02/26/20 12:00 98.1 81 29 157/72 (100) 96 02/26/20 12:00 Bi-pap 02/26/20 11:48 78 02/26/20 08:43 176/88 02/26/20 08:00 Bi-pap 02/26/20 08:00 76 02/26/20 08:00 30 02/26/20 08:00 98.2 76 20 150/65 (93) 94 02/26/20 06:55 82 24 99 30 02/26/20 04:00 Bi-pap 02/26/20 04:00 88 02/26/20 04:00 97.9 75 18 143/78 (99) 94 02/26/20 04:00 30 02/26/20 03:20 82 19 97 30 02/26/20 00:00 Bi-pap 02/26/20 00:00 97.7 79 20 128/74 (92) 94 02/26/20 00:00 79 02/25/20 22:40 75 17 95 Bi-Pap 30 79 18 99 30 02/25/20 20:00 30 02/25/20 20:00 97.5 60 21 135/66 (89) 99 02/25/20 20:00 Bi-pap 02/25/20 20:00 78 02/25/20 19:44 80 19 94 Bi-Pap 30 83 17 98 30 02/25/20 16:00 98.4 82 20 150/68 (95) 96 02/25/20 16:00 30 02/25/20 16:00 Bi-pap 02/25/20 16:00 80 02/25/20 15:33 70 18 96 Bi-Pap 30 74 19 98 30 Intake and Output 02/25/20 02/26/20 19:00 07:00 Intake Total 200 ml 50 ml Output Total 650 ml Balance 200 ml -600 ml Intake Oral 200 ml 50 ml Output Urine Total 650 ml # Voids 2 # Bowel Movements 2 Objective WDWN NAD reduced breath sounds bilaterally with reduced wheeze [id number] without MRG NABS nontender no HSM no CCE nonfocal weak overall Microbiology Date/Time Source Procedure Growth Status 02/24/20 10:40 Blood Blood Culture - Preliminary NO GROWTH AFTER 24 HOURS Resulted 02/24/20 10:10 Blood Blood Culture - Preliminary NO GROWTH AFTER 24 HOURS Resulted 02/24/20 10:16 Nasopharynx SARS-CoV-2 RdRp Gene Assay - Final Complete Laboratory Tests 02/25/20 16:59: POC Whole Blood Glucose 394H 02/25/20 20:33: POC Whole Blood Glucose 317H 02/26/20 03:10: Troponin I 0.090H 02/26/20 05:30: POC Whole Blood Glucose 398H 02/26/20 11:58: POC Whole Blood Glucose 340H Current Medications Medications (Trade) Dose Ordered Sig/Precious Route PRN Reason Start Time Stop Time Status Last Admin Dose Admin Acetaminophen (Tylenol) 650 mg Q4H PRN ORAL Mild Pain (Pain Scale 1-3) 02/24/20 17:45 03/25/20 17:44 02/25/20 05:33 Acetaminophen (Tylenol) 650 mg Q4H PRN ORAL Fever (>100.0) 02/24/20 17:45 03/25/20 17:44 Al Hydroxide/Mg Hydroxide (Mylanta) 30 ml Q4H PRN ORAL Dyspepsia 02/24/20 17:45 03/25/20 17:44 Albuterol Sulfate (Proventil) 2.5 mg Q4H PRN HHN Shortness of Breath 02/24/20 17:45 02/29/20 17:44 Albuterol Sulfate (Proventil) 2.5 mg Q4HRT HHN 02/24/20 19:00 02/29/20 18:59 02/25/20 22:40 Baclofen (Lioresal) 10 mg BID ORAL 02/25/20 09:00 03/26/20 08:59 02/26/20 08:42 Ceftriaxone Sodium 1 gm/ Sodium Chloride 55 ml @ 110 mls/hr QHS IVPB 02/25/20 21:00 03/02/20 20:59 02/25/20 20:38 Clonidine HCl (Catapres Tab) 0.1 mg Q4H PRN ORAL For High Blood Pressure 02/25/20 01:15 05/25/20 01:14 02/25/20 12:17 Dextrose (Dextrose 50%) 25 ml Q30M PRN IV Hypoglycemia 02/24/20 19:15 05/24/20 19:14 Dextrose (Dextrose 50%) 50 ml Q30M PRN IV Hypoglycemia 02/24/20 19:15 05/24/20 19:14 Famotidine (Pepcid) 20 mg DAILY ORAL 02/25/20 09:00 05/25/20 08:59 02/26/20 08:42 Heparin Sodium (Porcine) (Heparin 5000 units/ml) 5,000 units EVERY 12 HOURS SUBQ 02/24/20 21:00 04/09/20 20:59 02/26/20 08:44 Hydroxyzine HCl (Atarax) 25 mg EVERY 12 HOURS ORAL 02/24/20 21:00 03/25/20 20:59 02/26/20 08:48 Insulin Aspart (NovoLOG) BEFORE MEALS AND HS SUBQ 02/24/20 21:00 05/24/20 20:59 02/26/20 12:19 Insulin Detemir (Levemir) 5 units BID SUBQ 02/26/20 09:30 05/26/20 09:29 02/26/20 10:12 Losartan Potassium (Cozaar) 100 mg DAILY ORAL 02/25/20 09:00 03/26/20 08:59 02/26/20 08:43 Methylprednisolone Sodium Succinate (Solu-MEDROL) 60 mg DAILY IVP 02/27/20 09:00 05/24/20 20:59 UNV Pantoprazole (Protonix) 40 mg DAILY ORAL 02/25/20 09:00 03/26/20 08:59 02/26/20 08:42 Assessment/Plan Assessment/Plan IMPRESSION Acute respiratory failure chronic hypercapnia and hypoxemia leukocytosis possible sepsis Acute renal failure diabetes COPD with exacerbation PLAN care noted IV antibiotics- dc IV steroids reduce respiratory care BIPAP management; to QHS if able home meds to continue supportive care suction ERIKA care oxygen therapy prognosis guarded DVT prophylaxis impression, plan, and exam edited and reviewed in detail care discussed with Ramiro Lanza MD Feb 26, 2020 13:38
[2020-02-26 16:00] VITALS: BP 158/86
[2020-02-26 20:00] VITALS: BP 203/103
[2020-02-26] MEDS ORDERED: Albuterol 90mcg Inhaler 8gm INH PRN ×2 (21:00)
[2020-02-26] MEDS: Albuterol 90mcg Inhaler 8gm INH SCH (23:00)
[2020-02-27] VITALS (7 sets, daily range): BP systolic 141–156; BP diastolic 78–111
[2020-02-27] MEDS: Albuterol 90mcg Inhaler 8gm INH SCH ×4 (03:00→15:00)
[2020-02-27] MEDS: NovoLOG Insulin Flexpen SUBQ SCH ×4 (05:40→20:28)
[2020-02-27 07:54] LABS: BASOPHILS % (AUTO) 0.9 % (0.0-2.0); HEMATOCRIT 48.3 % (37.0-47.0); HEMOGLOBIN 15.5 G/DL (12.0-16.0); LYMPHOCYTES % (AUTO) 18.9 % (20.0-45.0); MEAN CORPUSCULAR VOLUME 79 FL (80-99); MONOCYTES % (AUTO) 10.7 % (1.0-10.0); NEUTROPHILS % (AUTO) 69.6 % (45.0-75.0); PLATELET COUNT 340 K/UL (150-450); RED CELL DISTRIBUTION WIDTH 12.4 % (11.6-14.8)
[2020-02-27 08:28] LABS: BILIRUBIN,TOTAL 0.6 MG/DL (0.2-1.0); CALCIUM 10.4 MG/DL (8.5-10.1); CREATININE 1.8 MG/DL (0.55-1.30)
[2020-02-27] MEDS ORDERED: Solu-MEDROL 125mg Inj IVP SCH (09:00)
[2020-02-27] MEDS: Losartan 50mg tab ORAL SCH (09:26)
[2020-02-27] MEDS: HydrOXYzine tab 25mg tab ORAL SCH ×2 (09:27→20:26)
[2020-02-27] MEDS: Levemir Flexpen SUBQ SCH ×2 (09:32→17:25)
[2020-02-27] MEDS: Heparin 5000 units/ml inj SUBQ SCH ×2 (09:33→20:27)
--- NOTE | 2020-02-27 11:49 | General Progress Note ---
Assessment/Plan Problem List: (1) Respiratory failure ICD Codes: J96.90 - Respiratory failure, unspecified, unspecified whether with hypoxia or hypercapnia SNOMED: 884626710 Qualifiers: Qualified Codes: J96.02 - Acute respiratory failure with hypercapnia (2) NSTEMI (non-ST elevated myocardial infarction) ICD Codes: I21.4 - Non-ST elevation (NSTEMI) myocardial infarction SNOMED: 59806616 (3) Hypertensive urgency ICD Codes: I16.0 - Hypertensive urgency SNOMED: 484817098 (4) Asthma with status asthmaticus in adult ICD Codes: J45.902 - Unspecified asthma with status asthmaticus SNOMED: 134850259 Qualifiers: Qualified Codes: J45.52 - Severe persistent asthma with status asthmaticus Status: stable Assessment/Plan: iv steroids resp rx bipap serial enzymes check duplex check echo Replace potassium dvt/stress ulcer prophylaxis monitor bs increase levemir Subjective ROS Limited/Unobtainable: Yes Constitutional: Reports: malaise, weakness HEENT: Reports: no symptoms Cardiovascular: Reports: no symptoms Respiratory: Reports: cough, shortness of breath Gastrointestinal/Abdominal: Reports: no symptoms Genitourinary: Reports: no symptoms Neurologic/Psychiatric: Reports: no symptoms Endocrine: Reports: no symptoms Hematologic/Lymphatic: Reports: no symptoms Allergies: Coded Allergies: No Known Allergies (Unverified , 02/24/20) All Systems: reviewed and negative except above Subjective No overnight events. Remained stable on BiPAP. On BiPAP most of yesterday. Currently no distress. Discussed with RT at the bedside. We will try to wean BiPAP later today. Low K noted. The WBC noted. On steroids. Objective Last 24 Hour Vital Signs Date Time Temp Pulse Resp B/P (MAP) Pulse Ox O2 Delivery O2 Flow Rate FiO2 02/27/20 09:26 141/94 02/27/20 09:00 2.0 02/27/20 08:30 Bi-pap 02/27/20 08:25 64 18 94 30 02/27/20 08:00 98.6 72 21 145/102 (116) 93 02/27/20 08:00 30 02/27/20 08:00 68 02/27/20 04:00 30 02/27/20 04:00 98.8 77 22 156/84 (108) 96 02/27/20 04:00 Bi-pap 02/27/20 03:42 74 02/27/20 03:10 68 19 96 30 02/27/20 00:00 98.1 93 22 151/111 (124) 98 02/27/20 00:00 30 02/27/20 00:00 Bi-pap 02/26/20 23:42 82 02/26/20 22:59 83 17 99 30 02/26/20 20:17 203/103 02/26/20 20:00 Bi-pap 02/26/20 20:00 97.7 99 25 203/103 (136) 98 02/26/20 19:30 69 02/26/20 19:07 84 24 98 30 02/26/20 17:30 84 99 02/26/20 16:58 30 02/26/20 16:40 75 02/26/20 16:00 Nasal Cannula 4.0 02/26/20 16:00 98.2 74 25 158/86 (110) 98 02/26/20 16:00 2.0 02/26/20 15:01 72 99 02/26/20 12:00 30 02/26/20 12:00 85 02/26/20 12:00 98.1 81 29 157/72 (100) 96 02/26/20 12:00 Bi-pap 02/26/20 11:48 78 Intake and Output 02/26/20 02/27/20 19:00 07:00 Intake Total 240 ml 40 ml Output Total 300 ml 500 ml Balance -60 ml -460 ml Intake Oral 240 ml 40 ml Output Urine Total 300 ml 500 ml # Bowel Movements 1 Laboratory Tests 02/26/20 11:58: POC Whole Blood Glucose 340H 02/26/20 16:28: POC Whole Blood Glucose 330H 02/26/20 20:20: POC Whole Blood Glucose [Pending] 02/26/20 22:34: POC Whole Blood Glucose 414H 02/27/20 05:03: POC Whole Blood Glucose 340H 02/27/20 07:24: White Blood Count 14.0H, Red Blood Count 6.10H, Hemoglobin 15.5, Hematocrit 48.3H, Mean Corpuscular Volume 79L, Mean Corpuscular Hemoglobin 25.5L, Mean Corpuscular Hemoglobin Concent 32.2, Red Cell Distribution Width 12.4, Platelet Count 340, Mean Platelet Volume 5.8L, Neutrophils (%) (Auto) 69.6, Lymphocytes ( %) (Auto) 18.9L, Monocytes (%) (Auto) 10.7H, Eosinophils (%) (Auto) 0.0, Basophils (%) (Auto) 0.9, Sodium Level 145, Potassium Level 3.0L, Chloride Level 104, Carbon Dioxide Level 28, Anion Gap 13, Blood Urea Nitrogen 50H, Creatinine 1.8H, Estimat Glomerular Filtration Rate 26.6, Glucose Level 309H, Calcium Level 10.4H, Total Bilirubin 0.6, Aspartate Amino Transf (AST/SGOT) 23, Alanine Aminotransferase (ALT/SGPT) 38, Alkaline Phosphatase 65, Total Protein 8.1, Albumin 4.0, Globulin 4.1, Albumin/Globulin Ratio 1.0 Height (Feet): 5 Height (Inches): 1.00 Weight (Pounds): 125 Objective General Appearance: WD/WN, alert EENT: PERRL/EOMI Neck: normal alignment, supple Cardiovascular: normal rate Respiratory/Chest: lungs clear, normal breath sounds, no respiratory distress, no accessory muscle use Abdomen: normal bowel sounds, non tender, soft, no organomegaly 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
--- NOTE | 2020-02-27 13:06 | Pulmonology Progress Note ---
Subjective ROS Limited/Unobtainable: Yes Allergies: Coded Allergies: No Known Allergies (Unverified , 02/24/20) All Systems: reviewed and negative except above Subjective off BIPAP overnight events reviewed on IV steroids at reduced dosing Objective Last 24 Hour Vital Signs Date Time Temp Pulse Resp B/P (MAP) Pulse Ox O2 Delivery O2 Flow Rate FiO2 02/27/20 12:00 97.3 78 22 151/81 (104) 98 02/27/20 12:00 Nasal Cannula 2.0 02/27/20 11:49 73 02/27/20 09:26 141/94 02/27/20 09:00 141/94 (110) 02/27/20 09:00 2.0 02/27/20 08:30 Bi-pap 02/27/20 08:29 75 20 99 02/27/20 08:25 64 18 94 30 02/27/20 08:00 98.6 72 21 145/102 (116) 93 02/27/20 08:00 30 02/27/20 08:00 68 02/27/20 04:00 30 02/27/20 04:00 98.8 77 22 156/84 (108) 96 02/27/20 04:00 Bi-pap 02/27/20 03:42 74 02/27/20 03:10 68 19 96 30 02/27/20 00:00 98.1 93 22 151/111 (124) 98 02/27/20 00:00 30 02/27/20 00:00 Bi-pap 02/26/20 23:42 82 02/26/20 22:59 83 17 99 30 02/26/20 20:17 203/103 02/26/20 20:00 Bi-pap 02/26/20 20:00 97.7 99 25 203/103 (136) 98 02/26/20 19:30 69 02/26/20 19:07 84 24 98 30 02/26/20 17:30 84 99 02/26/20 16:58 30 02/26/20 16:40 75 02/26/20 16:00 Nasal Cannula 4.0 02/26/20 16:00 98.2 74 25 158/86 (110) 98 02/26/20 16:00 2.0 02/26/20 15:01 72 99 Intake and Output 02/26/20 02/27/20 19:00 07:00 Intake Total 240 ml 40 ml Output Total 300 ml 500 ml Balance -60 ml -460 ml Intake Oral 240 ml 40 ml Output Urine Total 300 ml 500 ml # Bowel Movements 1 Objective WDWN NAD reduced breath sounds bilaterally with reduced wheeze [id number] without MRG NABS nontender no HSM no CCE nonfocal weak overall on NC oxygen Laboratory Tests 02/26/20 16:28: POC Whole Blood Glucose 330H 02/26/20 20:20: POC Whole Blood Glucose [Pending] 02/26/20 22:34: POC Whole Blood Glucose 414H 02/27/20 05:03: POC Whole Blood Glucose 340H 02/27/20 07:24: White Blood Count 14.0H, Red Blood Count 6.10H, Hemoglobin 15.5, Hematocrit 48.3H, Mean Corpuscular Volume 79L, Mean Corpuscular Hemoglobin 25.5L, Mean Corpuscular Hemoglobin Concent 32.2, Red Cell Distribution Width 12.4, Platelet Count 340, Mean Platelet Volume 5.8L, Neutrophils (%) (Auto) 69.6, Lymphocytes ( %) (Auto) 18.9L, Monocytes (%) (Auto) 10.7H, Eosinophils (%) (Auto) 0.0, Basophils (%) (Auto) 0.9, Sodium Level 145, Potassium Level 3.0L, Chloride Level 104, Carbon Dioxide Level 28, Anion Gap 13, Blood Urea Nitrogen 50H, Creatinine 1.8H, Estimat Glomerular Filtration Rate 26.6, Glucose Level 309H, Calcium Level 10.4H, Total Bilirubin 0.6, Aspartate Amino Transf (AST/SGOT) 23, Alanine Aminotransferase (ALT/SGPT) 38, Alkaline Phosphatase 65, Total Protein 8.1, Albumin 4.0, Globulin 4.1, Albumin/Globulin Ratio 1.0 02/27/20 11:49: POC Whole Blood Glucose 345H Current Medications Medications (Trade) Dose Ordered Sig/Precious Route PRN Reason Start Time Stop Time Status Last Admin Dose Admin Acetaminophen (Tylenol) 650 mg Q4H PRN ORAL Mild Pain (Pain Scale 1-3) 02/24/20 17:45 03/25/20 17:44 02/25/20 05:33 Acetaminophen (Tylenol) 650 mg Q4H PRN ORAL Fever (>100.0) 02/24/20 17:45 03/25/20 17:44 Al Hydroxide/Mg Hydroxide (Mylanta) 30 ml Q4H PRN ORAL Dyspepsia 02/24/20 17:45 03/25/20 17:44 Albuterol Sulfate (Proventil MDI) 2 puff Q4H PRN INH Shortness of Breath 02/26/20 21:00 05/26/20 20:59 Albuterol Sulfate (Proventil MDI) 2 puff Q4HRT INH 02/26/20 23:00 05/26/20 22:59 02/27/20 12:24 Baclofen (Lioresal) 10 mg BID ORAL 02/25/20 09:00 03/26/20 08:59 02/27/20 09:26 Clonidine HCl (Catapres Tab) 0.1 mg Q4H PRN ORAL For High Blood Pressure 02/25/20 01:15 05/25/20 01:14 02/26/20 20:17 Dextrose (Dextrose 50%) 25 ml Q30M PRN IV Hypoglycemia 02/24/20 19:15 05/24/20 19:14 Dextrose (Dextrose 50%) 50 ml Q30M PRN IV Hypoglycemia 02/24/20 19:15 05/24/20 19:14 Famotidine (Pepcid) 20 mg DAILY ORAL 02/25/20 09:00 05/25/20 08:59 02/27/20 09:26 Heparin Sodium (Porcine) (Heparin 5000 units/ml) 5,000 units EVERY 12 HOURS SUBQ 02/24/20 21:00 04/09/20 20:59 02/27/20 09:33 Hydroxyzine HCl (Atarax) 25 mg EVERY 12 HOURS ORAL 02/24/20 21:00 03/25/20 20:59 02/27/20 09:27 Insulin Aspart (NovoLOG) BEFORE MEALS AND HS SUBQ 02/24/20 21:00 05/24/20 20:59 02/27/20 11:58 Insulin Detemir (Levemir) 8 units BID SUBQ 02/27/20 18:00 05/27/20 17:59 Losartan Potassium (Cozaar) 100 mg DAILY ORAL 02/25/20 09:00 03/26/20 08:59 9/13/20 09:26 Methylprednisolone Sodium Succinate (Solu-MEDROL) 60 mg DAILY IVP 02/27/20 09:00 05/24/20 20:59 02/27/20 09:24 Pantoprazole (Protonix) 40 mg DAILY ORAL 02/25/20 09:00 03/26/20 08:59 02/27/20 09:27 Assessment/Plan Assessment/Plan IMPRESSION Acute respiratory failure chronic hypercapnia and hypoxemia leukocytosis possible sepsis Acute renal failure diabetes COPD with exacerbation PLAN care noted IV antibiotics- off IV steroids -dc in am respiratory care BIPAP management; to QHS as tolerated home meds to continue supportive care suction ERIKA care oxygen therapy prognosis guarded DVT prophylaxis PT and swallow eval impression, plan, and exam edited and reviewed in detail care discussed with Ramiro Lanza MD Feb 27, 2020 13:06
[2020-02-27 13:25] LABS: CALCIUM 9.6 MG/DL (8.5-10.1); CREATININE 2.1 MG/DL (0.55-1.30); POTASSIUM 4.4 MMOL/L (3.5-5.1)
[2020-02-27] MEDS ORDERED: NOVOLOG100 UNIT/4 SQ (16:01)
[2020-02-27] MEDS ORDERED: LANTUS SOL100 UNIT/1 SUBQ (16:01)
[2020-02-27] MEDS ORDERED: ARTIFICIAL TEAR15 ML BOTH EYES (16:01)
[2020-02-27] MEDS ORDERED: LOSARTAN POTASS50 MG ORAL (16:08)
[2020-02-27] MEDS ORDERED: ATARAX25 MG ORAL (16:08)
[2020-02-27] MEDS ORDERED: OYSTER SHELL 51 EAC2 PO (16:08)
[2020-02-27] MEDS ORDERED: TRAVOPROST2.5 ML BOTH EYES (16:08)
[2020-02-27] MEDS ORDERED: PYRIDOXINE HCL50 MG ORAL (16:08)
[2020-02-27] MEDS ORDERED: FOSAMAX70 MG ORAL (16:08)
[2020-02-27] MEDS ORDERED: BACLOFEN10 MG ORAL (16:08)
[2020-02-27] MEDS ORDERED: FAMOTIDINE20 MG ORAL (16:11)
[2020-02-27] MEDS ORDERED: HYDROCHLOROTHIA50 MG ORAL (16:11)
[2020-02-27] MEDS ORDERED: ATIVAN0.5 MG ORAL (16:11)
[2020-02-27] MEDS ORDERED: ACETAMINOPHEN325 M1 ORAL (16:11)
[2020-02-27] MEDS ORDERED: DOCUSATE SODIU100 MG ORAL (16:11)
[2020-02-28] VITALS: BP 121/93
[2020-02-28 04:00] VITALS: BP 114/43
[2020-02-28] MEDS: NovoLOG Insulin Flexpen SUBQ SCH ×4 (06:31→21:07)
--- NOTE | 2020-02-28 07:15 | General Progress Note ---
Assessment/Plan Problem List: (1) Respiratory failure ICD Codes: J96.90 - Respiratory failure, unspecified, unspecified whether with hypoxia or hypercapnia SNOMED: 581712222 Qualifiers: Qualified Codes: J96.02 - Acute respiratory failure with hypercapnia (2) NSTEMI (non-ST elevated myocardial infarction) ICD Codes: I21.4 - Non-ST elevation (NSTEMI) myocardial infarction SNOMED: 49937281 (3) Hypertensive urgency ICD Codes: I16.0 - Hypertensive urgency SNOMED: 431865837 (4) Asthma with status asthmaticus in adult ICD Codes: J45.902 - Unspecified asthma with status asthmaticus SNOMED: 761608914 Qualifiers: Qualified Codes: J45.52 - Severe persistent asthma with status asthmaticus Status: stable Assessment/Plan: iv steroids per pulm resp rx bipap prn renal us follow up labs dvt/stress ulcer prophylaxis monitor bs levemir and sliding scale . anticipate decrease BS with decreased steroids Subjective ROS Limited/Unobtainable: Yes Constitutional: Reports: malaise, weakness HEENT: Reports: no symptoms Cardiovascular: Reports: no symptoms Respiratory: Reports: cough, shortness of breath Gastrointestinal/Abdominal: Reports: no symptoms Genitourinary: Reports: no symptoms Neurologic/Psychiatric: Reports: no symptoms Endocrine: Reports: no symptoms Hematologic/Lymphatic: Reports: anemia Allergies: Coded Allergies: No Known Allergies (Unverified , 02/24/20) All Systems: reviewed and negative except above Subjective no events. did not require bipap last night. no fever or chills. no sob. labs pending for this am. BS remains elevated. on steroids. Objective Last 24 Hour Vital Signs Date Time Temp Pulse Resp B/P (MAP) Pulse Ox O2 Delivery O2 Flow Rate FiO2 02/28/20 04:00 97.5 67 21 114/43 (66) 97 02/28/20 04:00 2.0 02/28/20 04:00 Bi-pap 02/28/20 03:40 68 02/28/20 00:00 Nasal Cannula 2.0 02/28/20 00:00 97.5 71 21 121/93 (102) 97 02/28/20 00:00 69 02/27/20 20:00 Nasal Cannula 2.0 02/27/20 20:00 2.0 02/27/20 20:00 97.7 64 21 147/87 (107) 97 02/27/20 19:56 70 20 99 02/27/20 19:32 70 02/27/20 16:00 70 02/27/20 16:00 97.3 86 21 156/78 (104) 97 02/27/20 16:00 2.0 02/27/20 16:00 Nasal Cannula 2.0 02/27/20 15:23 76 20 99 02/27/20 12:00 97.3 78 22 151/81 (104) 98 02/27/20 12:00 Nasal Cannula 2.0 02/27/20 11:49 73 02/27/20 10:42 74 20 98 02/27/20 09:26 141/94 02/27/20 09:00 141/94 (110) 02/27/20 09:00 2.0 02/27/20 08:30 Bi-pap 02/27/20 08:29 75 20 99 02/27/20 08:25 64 18 94 30 02/27/20 08:00 98.6 72 21 145/102 (116) 93 02/27/20 08:00 30 02/27/20 08:00 68 Intake and Output 02/27/20 02/28/20 19:00 07:00 Intake Total 668 ml 630 ml Balance 668 ml 630 ml Intake Oral 668 ml 100 ml IV Total 530 ml # Voids 2 2 # Bowel Movements 2 Laboratory Tests 02/27/20 07:24: White Blood Count 14.0H, Red Blood Count 6.10H, Hemoglobin 15.5, Hematocrit 48.3H, Mean Corpuscular Volume 79L, Mean Corpuscular Hemoglobin 25.5L, Mean Corpuscular Hemoglobin Concent 32.2, Red Cell Distribution Width 12.4, Platelet Count 340, Mean Platelet Volume 5.8L, Neutrophils (%) (Auto) 69.6, Lymphocytes ( %) (Auto) 18.9L, Monocytes (%) (Auto) 10.7H, Eosinophils (%) (Auto) 0.0, Basophils (%) (Auto) 0.9, Sodium Level 145, Potassium Level 3.0L, Chloride Level 104, Carbon Dioxide Level 28, Anion Gap 13, Blood Urea Nitrogen 50H, Creatinine 1.8H, Estimat Glomerular Filtration Rate 26.6, Glucose Level 309H, Calcium Level 10.4H, Total Bilirubin 0.6, Aspartate Amino Transf (AST/SGOT) 23, Alanine Aminotransferase (ALT/SGPT) 38, Alkaline Phosphatase 65, Total Protein 8.1, Albumin 4.0, Globulin 4.1, Albumin/Globulin Ratio 1.0 02/27/20 11:49: POC Whole Blood Glucose 345H 02/27/20 13:08: Sodium Level 147H, Potassium Level 4.4, Chloride Level 106, Carbon Dioxide Level 29, Anion Gap 12, Blood Urea Nitrogen 55H, Creatinine 2.1H, Estimat Glomerular Filtration Rate 22.3, Glucose Level 484#H, Calcium Level 9.6 02/27/20 17:17: POC Whole Blood Glucose [Pending] 02/27/20 20:25: POC Whole Blood Glucose 476H 02/28/20 04:55: White Blood Count [Pending], Red Blood Count [Pending], Hemoglobin [Pending], Hematocrit [Pending], Mean Corpuscular Volume [Pending], Mean Corpuscular Hemoglobin [Pending], Mean Corpuscular Hemoglobin Concent [Pending], Red Cell Distribution Width [Pending], Platelet Count [Pending], Mean Platelet Volume [ Pending], Neutrophils (%) (Auto) [Pending], Lymphocytes (%) (Auto) [Pending], Monocytes (%) (Auto) [Pending], Eosinophils (%) (Auto) [Pending], Basophils (%) (Auto) [Pending], Sodium Level [Pending], Potassium Level [Pending], Chloride Level [Pending], Carbon Dioxide Level [Pending], Blood Urea Nitrogen [Pending], Creatinine [Pending], Estimat Glomerular Filtration Rate [Pending], Glucose Level [Pending], Uric Acid [Pending], Calcium Level [Pending], Total Bilirubin [ Pending], Aspartate Amino Transf (AST/SGOT) [Pending], Alanine Aminotransferase (ALT/SGPT) [Pending], Alkaline Phosphatase [Pending], Total Creatine Kinase [ Pending], Total Protein [Pending], Albumin [Pending], Globulin [Pending] Height (Feet): 5 Height (Inches): 1.00 Weight (Pounds): 125 Objective General Appearance: WD/WN, alert EENT: PERRL/EOMI Neck: normal alignment, supple Cardiovascular: normal rate Respiratory/Chest: lungs clear, normal breath sounds, no respiratory distress, no accessory muscle use Abdomen: normal bowel sounds, non tender, soft, no organomegaly 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
[2020-02-28 07:21] LABS: BASOPHILS % (AUTO) 0.4 % (0.0-2.0); HEMATOCRIT 49.4 % (37.0-47.0); HEMOGLOBIN 15.6 G/DL (12.0-16.0); LYMPHOCYTES % (AUTO) 22.5 % (20.0-45.0); MEAN CORPUSCULAR VOLUME 80 FL (80-99); MONOCYTES % (AUTO) 13.2 % (1.0-10.0); NEUTROPHILS % (AUTO) 63.9 % (45.0-75.0); PLATELET COUNT 336 K/UL (150-450); RED BLOOD COUNT 6.16 M/UL (4.20-5.40); RED CELL DISTRIBUTION WIDTH 12.3 % (11.6-14.8); WHITE BLOOD COUNT 12.7 K/UL (4.8-10.8)
[2020-02-28 07:29] LABS: ALANINE AMINOTRANSFERASE 35 U/L (12-78); ALKALINE PHOSPHATASE 70 U/L (46-116); ANION GAP 12 mmol/L (5-15); ASPARTATE AMINO TRANSFERASE 17 U/L (15-37); BILIRUBIN,TOTAL 0.7 MG/DL (0.2-1.0); BLOOD UREA NITROGEN 49 mg/dL (7-18); CALCIUM 9.5 MG/DL (8.5-10.1); CARBON DIOXIDE 29 MMOL/L (21-32); CHLORIDE 111 MMOL/L (98-107); CREATINE KINASE 54 U/L (26-308); CREATININE 1.6 MG/DL (0.55-1.30); POTASSIUM 3.5 MMOL/L (3.5-5.1); SODIUM 152 MMOL/L (136-145)
[2020-02-28 08:00] VITALS: BP 155/101
[2020-02-28] MEDS ORDERED: Varibar Honey 250ml MC PRN (08:15)
[2020-02-28] MEDS ORDERED: Varibar Thin Liquid powder 148gm MC PRN (08:15)
[2020-02-28] MEDS ORDERED: Varibar Nectar 240ml MC PRN (08:15)
[2020-02-28] MEDS ORDERED: Varibar Pudding 230ml MC PRN (08:15)
--- NOTE | 2020-02-28 08:28 | Pulmonology Progress Note ---
Subjective ROS Limited/Unobtainable: Yes Allergies: Coded Allergies: No Known Allergies (Unverified , 02/24/20) All Systems: reviewed and negative except above Subjective off BIPAP overnight and resting comfortable events reviewed on IV steroids Objective Last 24 Hour Vital Signs Date Time Temp Pulse Resp B/P (MAP) Pulse Ox O2 Delivery O2 Flow Rate FiO2 02/28/20 04:00 97.5 67 21 114/43 (66) 97 02/28/20 04:00 2.0 02/28/20 04:00 Bi-pap 02/28/20 03:40 68 02/28/20 00:00 Nasal Cannula 2.0 02/28/20 00:00 97.5 71 21 121/93 (102) 97 02/28/20 00:00 69 02/27/20 20:00 Nasal Cannula 2.0 02/27/20 20:00 2.0 02/27/20 20:00 97.7 64 21 147/87 (107) 97 02/27/20 19:56 70 20 99 02/27/20 19:32 70 02/27/20 16:00 70 02/27/20 16:00 97.3 86 21 156/78 (104) 97 02/27/20 16:00 2.0 02/27/20 16:00 Nasal Cannula 2.0 02/27/20 15:23 76 20 99 02/27/20 12:00 97.3 78 22 151/81 (104) 98 02/27/20 12:00 Nasal Cannula 2.0 02/27/20 11:49 73 02/27/20 10:42 74 20 98 02/27/20 09:26 141/94 02/27/20 09:00 141/94 (110) 02/27/20 09:00 2.0 02/27/20 08:30 Bi-pap 02/27/20 08:29 75 20 99 02/27/20 08:25 64 18 94 30 Intake and Output 02/27/20 02/28/20 19:00 07:00 Intake Total 668 ml 855 ml Balance 668 ml 855 ml Intake Oral 668 ml 100 ml IV Total 755 ml # Voids 2 2 # Bowel Movements 2 Objective WDWN NAD reduced breath sounds bilaterally with reduced wheeze [id number] without MRG NABS nontender no HSM no CCE nonfocal weak overall on NC oxygen Microbiology Date/Time Source Procedure Growth Status 02/25/20 10:25 Nasopharynx Coronavirus COVID-19 PCR ([facility]) - Final Complete Laboratory Tests 02/27/20 11:49: POC Whole Blood Glucose 345H 02/27/20 13:08: Sodium Level 147H, Potassium Level 4.4, Chloride Level 106, Carbon Dioxide Level 29, Anion Gap 12, Blood Urea Nitrogen 55H, Creatinine 2.1H, Estimat Glomerular Filtration Rate 22.3, Glucose Level 484#H, Calcium Level 9.6 02/27/20 17:17: POC Whole Blood Glucose [Pending] 02/27/20 20:25: POC Whole Blood Glucose 476H 02/28/20 04:55: White Blood Count 12.7H, Red Blood Count 6.16H, Hemoglobin 15.6, Hematocrit 49.4H, Mean Corpuscular Volume 80, Mean Corpuscular Hemoglobin 25.3L, Mean Corpuscular Hemoglobin Concent 31.6L, Red Cell Distribution Width 12.3, Platelet Count 336, Mean Platelet Volume 5.7L, Neutrophils (%) (Auto) 63.9, Lymphocytes (%) (Auto) 22.5, Monocytes (%) (Auto) 13.2H, Eosinophils (%) (Auto) 0.0, Basophils (%) (Auto) 0.4, Sodium Level 152H, Potassium Level 3.5, Chloride Level 111H, Carbon Dioxide Level 29, Anion Gap 12, Blood Urea Nitrogen 49H, Creatinine 1.6H, Estimat Glomerular Filtration Rate 30.4, Glucose Level 324#H, Uric Acid 5.1, Calcium Level 9.5, Total Bilirubin 0.7, Aspartate Amino Transf ( AST/SGOT) 17, Alanine Aminotransferase (ALT/SGPT) 35, Alkaline Phosphatase 70, Total Creatine Kinase 54, Total Protein 7.9, Albumin 4.0, Globulin 3.9, Albumin/ Globulin Ratio 1.0 Current Medications Medications (Trade) Dose Ordered Sig/Precious Route PRN Reason Start Time Stop Time Status Last Admin Dose Admin Acetaminophen (Tylenol) 650 mg Q4H PRN ORAL Mild Pain (Pain Scale 1-3) 02/24/20 17:45 03/25/20 17:44 02/25/20 05:33 Acetaminophen (Tylenol) 650 mg Q4H PRN ORAL Fever (>100.0) 02/24/20 17:45 03/25/20 17:44 Al Hydroxide/Mg Hydroxide (Mylanta) 30 ml Q4H PRN ORAL Dyspepsia 02/24/20 17:45 03/25/20 17:44 Albuterol Sulfate (Proventil MDI) 2 puff Q4H PRN INH Shortness of Breath 02/26/20 21:00 05/26/20 20:59 02/27/20 19:54 Baclofen (Lioresal) 10 mg BID ORAL 02/25/20 09:00 03/26/20 08:59 02/27/20 17:26 Barium Sulfate (Varibar Honey) 250 ml NOW PRN MC RAD 02/28/20 08:15 03/02/20 08:03 Barium Sulfate (Varibar Jupiter) 240 ml NOW PRN RAD 02/28/20 08:15 03/02/20 08:03 Barium Sulfate (Varibar Pudding) 230 ml NOW PRN RAD 02/28/20 08:15 03/02/20 08:03 Barium Sulfate (Varibar Thin Liquid powder) 148 gm NOW PRN RAD 02/28/20 08:15 03/02/20 08:03 Clonidine HCl (Catapres Tab) 0.1 mg Q4H PRN ORAL For High Blood Pressure 02/25/20 01:15 05/25/20 01:14 02/26/20 20:17 Dextrose (Dextrose 50%) 25 ml Q30M PRN IV Hypoglycemia 02/24/20 19:15 05/24/20 19:14 Dextrose (Dextrose 50%) 50 ml Q30M PRN IV Hypoglycemia 02/24/20 19:15 05/24/20 19:14 Famotidine (Pepcid) 20 mg DAILY ORAL 02/25/20 09:00 05/25/20 08:59 02/27/20 09:26 Heparin Sodium (Porcine) (Heparin 5000 units/ml) 5,000 units EVERY 12 HOURS SUBQ 02/24/20 21:00 04/09/20 20:59 02/27/20 20:27 Hydroxyzine HCl (Atarax) 25 mg EVERY 12 HOURS ORAL 02/24/20 21:00 03/25/20 20:59 02/27/20 20:26 Insulin Aspart (NovoLOG) BEFORE MEALS AND HS SUBQ 02/24/20 21:00 05/24/20 20:59 02/28/20 06:31 Insulin Detemir (Levemir) 8 units BID SUBQ 02/27/20 18:00 05/27/20 17:59 02/27/20 17:25 Losartan Potassium (Cozaar) 100 mg DAILY ORAL 02/25/20 09:00 03/26/20 08:59 02/27/20 09:26 Methylprednisolone Sodium Succinate (Solu-MEDROL) 60 mg DAILY IVP 02/27/20 09:00 05/24/20 20:59 02/27/20 09:24 Pantoprazole (Protonix) 40 mg DAILY ORAL 02/25/20 09:00 03/26/20 08:59 02/27/20 09:27 Sodium Chloride 1,000 ml @ 75 mls/hr [id number] IV 02/27/20 14:30 03/28/20 14:29 02/28/20 04:00 Assessment/Plan Assessment/Plan IMPRESSION Acute respiratory failure chronic hypercapnia and hypoxemia leukocytosis possible sepsis Acute renal failure diabetes COPD with exacerbation PLAN care noted IV antibiotics- off IV steroids -dc today respiratory care BIPAP management; to [facility] as tolerated home meds to continue supportive care suction transfer to tele oxygen therapy prognosis guarded DVT prophylaxis PT and swallow eval pending dc impression, plan, and exam edited and reviewed in detail care discussed with Ramiro Lanza MD Feb 28, 2020 08:28
[2020-02-28] MEDS: Losartan 50mg tab ORAL SCH (08:34)
[2020-02-28] MEDS: HydrOXYzine tab 25mg tab ORAL SCH ×2 (08:34→21:01)
[2020-02-28] MEDS: Heparin 5000 units/ml inj SUBQ SCH ×2 (08:54→21:05)
[2020-02-28] MEDS: Levemir Flexpen SUBQ SCH ×2 (08:55→17:48)
[2020-02-28 11:58] VITALS: BP 140/88
--- NOTE | 2020-02-28 13:05 | Diagnostic Imaging Report ---
EXAM: ULTRASOUND US Renal Comp CLINICAL HISTORY: Abdominal discomfort. COMPARISON: None TECHNIQUE: Ultrasound examination of the kidneys includes grayscale images, and color and spectral doppler analysis. FINDINGS: The right kidney measures 8 x 3.6 x 3.1 cm and the left kidney measures 7.5 x 4.8 x 3.9 cm. Bilateral cortical thinning noted. A small cyst noted at the mid to lower pole of the right kidney. There is no hydronephrosis or stone seen bilaterally. Bladder is only partially distended. IMPRESSION: BILATERAL SMALL KIDNEYS WITH CORTICAL THINNING LIKELY REFLECTING CHRONIC MEDICAL RENAL DISEASE. SMALL RIGHT RENAL CYST IS NO OBSTRUCTIVE UROPATHY.
[2020-02-28] MEDS ORDERED: D5W w/KCl 20mEq 1,000 ML IV SCH ×2 (15:00→22:45)
[2020-02-28 16:00] VITALS: BP 150/77
[2020-02-28 20:00] VITALS: BP 151/116
[2020-02-29] VITALS: BP 147/69
[2020-02-29 04:00] VITALS: BP 143/80
[2020-02-29] MEDS: NovoLOG Insulin Flexpen SUBQ SCH ×2 (06:25→12:00)
[2020-02-29 07:56] LABS: BILIRUBIN,TOTAL 0.9 MG/DL (0.2-1.0); CALCIUM 10.7 MG/DL (8.5-10.1); CREATININE 1.7 MG/DL (0.55-1.30); POTASSIUM 3.7 MMOL/L (3.5-5.1)
--- NOTE | 2020-02-29 08:00 | Consultation ---
DATE OF CONSULTATION: 02/28/2020 NEPHROLOGY CONSULTATION CONSULTING PHYSICIAN: Lynnette Bowers MD. ATTENDING PHYSICIAN: Ramiro Cochran MD. REFERRING PHYSICIANS: Sergio Kee MD. and Ramiro Cochran MD. REASON FOR CONSULTATION: Elevated BUN and creatinine. HISTORY OF PRESENT ILLNESS: This is an 89-year-old female who was admitted to the hospital with shortness of breath. I am asked to see the patient for elevation of BUN and creatinine. The patient is obtunded and unable to give any further information. PAST MEDICAL HISTORY: 1. Hypertensive cardiovascular disease. 2. COPD. 3. Type 2 diabetes mellitus. MEDICATIONS: 1. IV fluids half-normal saline 75 mL/hour. 2. Tylenol p.r.n. 3. Albuterol inhalation. 4. Baclofen. 5. Clonidine p.r.n. every 4 hours. 6. Famotidine. 7. Subcutaneous heparin. 8. Atarax q.12 hours p.r.n. 9. Insulin sliding scale, Levemir. 10. Losartan, done. 11. Methyl prednisolone IV piggyback daily 60 mg. 12. Mylanta p.r.n. 13. Protonix. ALLERGIES: No known allergies. FAMILY HISTORY: Unable to obtain due to mental status. SOCIAL HISTORY: Unable to obtain due to mental status. REVIEW OF SYSTEMS: Unable to obtain due to mental status. PHYSICAL EXAMINATION: GENERAL: This is an elderly female, who is in no acute distress. VITAL SIGNS: Blood pressure 140/88, pulse 88 and regular, respirations 20, temperature 97.5 axillary. HEENT: The head is normocephalic and atraumatic. Pupils are equal, round, and reactive to light and accommodation consensually. NECK: Supple. Trachea midline. There was no lymphadenopathy or thyromegaly. LUNGS: Few bilateral wheezes. HEART: Regular rate and rhythm without rubs, murmurs, or gallops. ABDOMEN: Soft and nontender. Bowel sounds were active. EXTREMITIES: No clubbing, cyanosis, or edema. NEUROLOGIC: She is alert, but confused. There were no gross focal findings. LABORATORY AND ANCILLARY DATA: CBC shows hematocrit 49.4, WBC 12,700, and platelet count 336,000. Chemistry - sodium 152, potassium 3.5, chloride 111, BUN 49, creatinine 1.6. Urinalysis not available. IMAGING STUDIES: Renal ultrasound shows bilateral small kidneys with cortical thinning reflecting chronic kidney disease. No obstruction. Chest x-ray, no acute cardiopulmonary disease. ASSESSMENT: 1. Chronic kidney disease, etiology unclear. 2. COPD exacerbation. 3. Hypertensive cardiovascular disease. 4. COPD. 5. Type 2 diabetes mellitus. 6. Hypernatremia. PLAN: 1. Change IV fluids to hypotonic fluids. 2. Continue all other therapies. 3. Discontinue baclofen as it may accumulate in the chronic kidney disease and cause altered level of consciousness. Thank you Dr. Kee and Dr. Cochran. Lynnette Bowers M.D. DR: HAFSA JOB#: [id number] CC: MENDEL
[2020-02-29] MEDS ORDERED: Varibar Honey 250ml MC PRN (08:15)
[2020-02-29] MEDS ORDERED: Varibar Nectar 240ml MC PRN (08:15)
[2020-02-29] MEDS ORDERED: Varibar Thin Liquid powder 148gm MC PRN (08:15)
[2020-02-29] MEDS ORDERED: Varibar Pudding 230ml MC PRN (08:15)
[2020-02-29 08:26] VITALS: BP 169/77
--- NOTE | 2020-02-29 08:52 | General Progress Note ---
Assessment/Plan Problem List: (1) Respiratory failure ICD Codes: J96.90 - Respiratory failure, unspecified, unspecified whether with hypoxia or hypercapnia SNOMED: 717839236 Qualifiers: Qualified Codes: J96.02 - Acute respiratory failure with hypercapnia (2) NSTEMI (non-ST elevated myocardial infarction) ICD Codes: I21.4 - Non-ST elevation (NSTEMI) myocardial infarction SNOMED: 44906101 (3) Hypertensive urgency ICD Codes: I16.0 - Hypertensive urgency SNOMED: 947502778 (4) Asthma with status asthmaticus in adult ICD Codes: J45.902 - Unspecified asthma with status asthmaticus SNOMED: 624313472 Qualifiers: Qualified Codes: J45.52 - Severe persistent asthma with status asthmaticus Status: stable Assessment/Plan: o2 as needed prn bipap resp rx renal us- reviewed renal noted monitor labs dvt/stress ulcer prophylaxis monitor bs levemir and sliding scale . anticipate decrease BS with decreased steroids will monitor increase levemir later today if BS remains elevated Subjective ROS Limited/Unobtainable: No Constitutional: Reports: malaise, weakness HEENT: Reports: no symptoms Cardiovascular: Reports: no symptoms Respiratory: Reports: cough, shortness of breath Gastrointestinal/Abdominal: Reports: no symptoms Genitourinary: Reports: no symptoms Neurologic/Psychiatric: Reports: no symptoms Endocrine: Reports: no symptoms Hematologic/Lymphatic: Reports: no symptoms Allergies: Coded Allergies: No Known Allergies (Unverified , 02/24/20) All Systems: reviewed and negative except above Subjective no events. stable on o2. no longer using bipap. BS remains elevated. on D5w. steroids dcd.renal us with small kidneys. no obstruction. Objective Last 24 Hour Vital Signs Date Time Temp Pulse Resp B/P (MAP) Pulse Ox O2 Delivery O2 Flow Rate FiO2 02/29/20 08:26 97.7 86 18 169/77 (107) 99 02/29/20 07:50 96 Nasal Cannula 2.0 28 02/29/20 04:00 98.1 81 18 143/80 (101) 99 02/29/20 04:00 64 02/29/20 03:09 Nasal Cannula 3.0 02/29/20 00:00 Nasal Cannula 3.0 02/29/20 00:00 98.2 77 22 147/69 (95) 99 02/28/20 21:02 151/116 02/28/20 20:00 2.0 02/28/20 20:00 Nasal Cannula 2.0 02/28/20 20:00 97.2 81 22 151/116 (128) 98 02/28/20 20:00 73 02/28/20 16:00 79 02/28/20 16:00 99.5 80 18 150/77 (101) 97 02/28/20 16:00 2.0 02/28/20 16:00 Nasal Cannula 2.0 02/28/20 12:00 95 02/28/20 11:58 2.0 02/28/20 11:58 97.5 88 20 140/88 (105) 98 02/28/20 11:57 Nasal Cannula 2.0 02/28/20 09:59 90 24 97 Intake and Output 02/28/20 02/29/20 19:00 07:00 Intake Total 600 ml 300 ml Balance 600 ml 300 ml Intake Oral 600 ml 300 ml # Voids 2 2 # Bowel Movements 1 Laboratory Tests 02/28/20 12:24: POC Whole Blood Glucose [Pending] 02/28/20 17:45: POC Whole Blood Glucose [Pending] 02/28/20 20:35: POC Whole Blood Glucose [Pending] 02/29/20 05:35: Sodium Level 146H, Potassium Level 3.7, Chloride Level 107, Carbon Dioxide Level 30, Anion Gap 10, Blood Urea Nitrogen 46H, Creatinine 1.7H, Estimat Glomerular Filtration Rate 28.3, Glucose Level 332H, Calcium Level 10.7H, Total Bilirubin 0.9, Aspartate Amino Transf (AST/SGOT) 21, Alanine Aminotransferase ( ALT/SGPT) 35, Alkaline Phosphatase 72, Total Protein 8.1, Albumin 4.0, Globulin 4.1, Albumin/Globulin Ratio 1.0 02/29/20 05:39: Magnesium Level 2.2 Height (Feet): 5 Height (Inches): 1.00 Weight (Pounds): 125 Objective General Appearance: WD/WN, alert EENT: PERRL/EOMI Neck: normal alignment, supple Cardiovascular: normal rate Respiratory/Chest: lungs clear, normal breath sounds, no respiratory distress, no accessory muscle use Abdomen: normal bowel sounds, non tender, soft, no organomegaly 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
[2020-02-29] MEDS ORDERED: Heparin 5000 units/ml inj SUBQ SCH (09:00)
[2020-02-29] MEDS ORDERED: Levemir Flexpen SUBQ SCH (09:00)
[2020-02-29] MEDS ORDERED: Losartan 50mg tab ORAL SCH (09:00)
[2020-02-29] MEDS ORDERED: HydrOXYzine tab 25mg tab ORAL SCH (09:00)
--- NOTE | 2020-02-29 09:58 | Pulmonology Progress Note ---
Subjective ROS Limited/Unobtainable: No Allergies: Coded Allergies: No Known Allergies (Unverified , 02/24/20) All Systems: reviewed and negative except above Subjective off BIPAP overnight and resting comfortable events reviewed off IV steroids seems she is still sob Objective Last 24 Hour Vital Signs Date Time Temp Pulse Resp B/P (MAP) Pulse Ox O2 Delivery O2 Flow Rate FiO2 02/29/20 08:26 97.7 86 18 169/77 (107) 99 02/29/20 07:50 96 Nasal Cannula 2.0 28 02/29/20 04:00 98.1 81 18 143/80 (101) 99 02/29/20 04:00 64 02/29/20 03:09 Nasal Cannula 3.0 02/29/20 00:00 Nasal Cannula 3.0 02/29/20 00:00 98.2 77 22 147/69 (95) 99 02/28/20 21:02 151/116 02/28/20 20:00 2.0 02/28/20 20:00 Nasal Cannula 2.0 02/28/20 20:00 97.2 81 22 151/116 (128) 98 02/28/20 20:00 73 02/28/20 16:00 79 02/28/20 16:00 99.5 80 18 150/77 (101) 97 02/28/20 16:00 2.0 02/28/20 16:00 Nasal Cannula 2.0 02/28/20 12:00 95 02/28/20 11:58 2.0 02/28/20 11:58 97.5 88 20 140/88 (105) 98 02/28/20 11:57 Nasal Cannula 2.0 02/28/20 09:59 90 24 97 Intake and Output 02/28/20 02/29/20 19:00 07:00 Intake Total 600 ml 300 ml Balance 600 ml 300 ml Intake Oral 600 ml 300 ml # Voids 2 2 # Bowel Movements 1 Objective WDWN NAD reduced breath sounds bilaterally with no rhonchi wheeze [id number] without MRG NABS nontender no HSM no CCE nonfocal weak overall on NC oxygen Laboratory Tests 02/28/20 12:24: POC Whole Blood Glucose [Pending] 02/28/20 17:45: POC Whole Blood Glucose [Pending] 02/28/20 20:35: POC Whole Blood Glucose [Pending] 02/29/20 05:35: Sodium Level 146H, Potassium Level 3.7, Chloride Level 107, Carbon Dioxide Level 30, Anion Gap 10, Blood Urea Nitrogen 46H, Creatinine 1.7H, Estimat Glomerular Filtration Rate 28.3, Glucose Level 332H, Calcium Level 10.7H, Total Bilirubin 0.9, Aspartate Amino Transf (AST/SGOT) 21, Alanine Aminotransferase ( ALT/SGPT) 35, Alkaline Phosphatase 72, Total Protein 8.1, Albumin 4.0, Globulin 4.1, Albumin/Globulin Ratio 1.0 02/29/20 05:39: Magnesium Level 2.2 02/29/20 05:47: POC Whole Blood Glucose 327H Current Medications Medications (Trade) Dose Ordered Sig/Precious Route PRN Reason Start Time Stop Time Status Last Admin Dose Admin Acetaminophen (Tylenol) 650 mg Q4H PRN ORAL Fever (>100.0) 02/29/20 23:00 03/25/20 22:59 Acetaminophen (Tylenol) 650 mg Q4H PRN ORAL Mild Pain (Pain Scale 1-3) 02/29/20 23:00 03/25/20 22:59 Al Hydroxide/Mg Hydroxide (Mylanta) 30 ml Q4H PRN ORAL Dyspepsia 02/29/20 23:00 03/25/20 22:59 Albuterol Sulfate (Proventil MDI) 2 puff Q4H PRN INH Shortness of Breath 02/29/20 23:00 05/26/20 22:59 Barium Sulfate (Varibar Honey) 250 ml NOW PRN MC RAD 02/29/20 08:15 03/02/20 08:03 Barium Sulfate (Varibar Dickey) 240 ml NOW PRN MC RAD 02/29/20 08:15 03/02/20 08:03 Barium Sulfate (Varibar Pudding) 230 ml NOW PRN MC RAD 02/29/20 08:15 03/02/20 08:03 Barium Sulfate (Varibar Thin Liquid powder) 148 gm NOW PRN MC RAD 02/29/20 08:15 03/02/20 08:03 Clonidine HCl (Catapres Tab) 0.1 mg Q4H PRN ORAL For High Blood Pressure 02/29/20 23:00 05/25/20 22:59 Dextrose (Dextrose 50%) 25 ml Q30M PRN IV Hypoglycemia 02/28/20 22:45 05/24/20 19:14 Dextrose (Dextrose 50%) 50 ml Q30M PRN IV Hypoglycemia 02/28/20 22:45 05/24/20 19:14 Dextrose/ Electrolytes 1,000 ml @ 50 mls/hr Q20H IV 02/28/20 22:45 03/29/20 14:59 02/28/20 23:00 Famotidine (Pepcid) 20 mg DAILY ORAL 02/29/20 09:00 05/25/20 08:59 Heparin Sodium (Porcine) (Heparin 5000 units/ml) 5,000 units EVERY 12 HOURS SUBQ 02/29/20 09:00 04/09/20 20:59 Hydroxyzine HCl (Atarax) 25 mg EVERY 12 HOURS ORAL 02/29/20 09:00 03/25/20 20:59 Insulin Aspart (NovoLOG) BEFORE MEALS AND HS SUBQ 02/29/20 06:30 05/24/20 20:59 02/29/20 06:25 Insulin Detemir (Levemir) 8 units BID SUBQ 02/29/20 09:00 05/27/20 17:59 Losartan Potassium (Cozaar) 100 mg DAILY ORAL 02/29/20 09:00 03/26/20 08:59 Pantoprazole (Protonix) 40 mg DAILY ORAL 02/29/20 09:00 03/26/20 08:59 Assessment/Plan Assessment/Plan IMPRESSION Acute respiratory failure chronic hypercapnia and hypoxemia leukocytosis possible sepsis Acute renal failure diabetes COPD with exacerbation PLAN care noted IV antibiotics- off IV steroids -off respiratory care BIPAP management; to [facility] as tolerated home meds to continue supportive care suction transfer to tele oxygen therapy prognosis guarded DVT prophylaxis PT and swallow eval dc home with HH with caution impression, plan, and exam edited and reviewed in detail care discussed with Ramiro Lanza MD Feb 29, 2020 09:58
--- NOTE | 2020-02-29 11:32 | Diagnostic Imaging Report ---
EXAM: ULTRASOUND Venous Duplex Scan Jake Leg CLINICAL HISTORY: Leg pain and edema. COMPARISON: None TECHNIQUE: Doppler examination include grayscale images obtained with and without compression, and color and spectral doppler analysis. FINDINGS: Doppler examination shows normal spontaneity, phasicity, compressibility in the bilateral lower extremities. There is no thrombus identified by grayscale. Normal color and spectral flow is identified. There is no evidence of valvular incompetency or insufficiency. IMPRESSION: UNREMARKABLE VENOUS DUPLEX.
[2020-02-29 12:00] VITALS: BP 164/77
[2020-02-29] MEDS ORDERED: NS 275ml ONE (15:44)
--- NOTE | 2020-02-29 16:44 | Nephrology Progress Note ---
Assessment/Plan Plan CKD 4 monitoring labs Sepsis - IV Abx Subjective Subjective Confused Objective Objective Last 24 Hour Vital Signs Date Time Temp Pulse Resp B/P (MAP) Pulse Ox O2 Delivery O2 Flow Rate FiO2 02/29/20 16:00 Nasal Cannula 3.0 02/29/20 13:57 94 20 96 Nasal Cannula 2.0 28 02/29/20 12:00 73 02/29/20 12:00 Nasal Cannula 3.0 02/29/20 12:00 97.7 96 18 164/77 (106) 98 02/29/20 10:02 169/77 02/29/20 09:00 Nasal Cannula 3.0 02/29/20 08:26 97.7 86 18 169/77 (107) 99 02/29/20 08:00 70 02/29/20 07:50 96 Nasal Cannula 2.0 28 02/29/20 04:00 98.1 81 18 143/80 (101) 99 02/29/20 04:00 64 02/29/20 03:09 Nasal Cannula 3.0 02/29/20 00:00 Nasal Cannula 3.0 02/29/20 00:00 98.2 77 22 147/69 (95) 99 02/28/20 21:02 151/116 02/28/20 20:00 2.0 02/28/20 20:00 Nasal Cannula 2.0 02/28/20 20:00 97.2 81 22 151/116 (128) 98 02/28/20 20:00 73 Intake and Output 02/28/20 02/29/20 19:00 07:00 Intake Total 600 ml 300 ml Balance 600 ml 300 ml Intake Oral 600 ml 300 ml # Voids 2 2 # Bowel Movements 1 Laboratory Tests 02/28/20 17:45: POC Whole Blood Glucose [Pending] 02/28/20 20:35: POC Whole Blood Glucose [Pending] 02/29/20 05:35: Sodium Level 146H, Potassium Level 3.7, Chloride Level 107, Carbon Dioxide Level 30, Anion Gap 10, Blood Urea Nitrogen 46H, Creatinine 1.7H, Estimat Glomerular Filtration Rate 28.3, Glucose Level 332H, Calcium Level 10.7H, Total Bilirubin 0.9, Aspartate Amino Transf (AST/SGOT) 21, Alanine Aminotransferase ( ALT/SGPT) 35, Alkaline Phosphatase 72, Total Protein 8.1, Albumin 4.0, Globulin 4.1, Albumin/Globulin Ratio 1.0 02/29/20 05:39: Magnesium Level 2.2 02/29/20 05:47: POC Whole Blood Glucose 327H 02/29/20 11:49: POC Whole Blood Glucose 276H Height (Feet): 5 Height (Inches): 1.00 Weight (Pounds): 125 Objective CV RR Lungs B wheezes Abd SNT. BS + E No CCE Lynnette Bowers MD Feb 29, 2020 16:44
[2020-02-29] MEDS ORDERED: Albuterol 90mcg Inhaler 8gm INH PRN (23:00)
--- NOTE | 2020-03-01 02:57 | Cardiology Progress Note ---
Subjective DATE OF SERVICE: Feb 25, 2020 Remains congested; still on bipap support No fever spikes Objective Vitals reviewed Labs noted 150/68 82 20 afebrile RHYTHM: ST LUNGS: bilateral rhonchi CARDIAC: normal rate, regular rhythm, normal S1 and S2 ABDOMEN: normal bowel sounds, G-Tube intact EXTREMITIES: No edema Laboratory Tests Test 02/29/20 05:35 02/29/20 05:39 02/29/20 05:47 02/29/20 11:49 Sodium Level 146 MMOL/L (136-145) H Potassium Level 3.7 MMOL/L (3.5-5.1) Chloride Level 107 MMOL/L (98-107) Carbon Dioxide Level 30 MMOL/L (21-32) Anion Gap 10 mmol/L (5-15) Blood Urea Nitrogen 46 mg/dL (7-18) H Creatinine 1.7 MG/DL (0.55-1.30) H Estimat Glomerular Filtration Rate 28.3 mL/min (>60) Glucose Level 332 MG/DL (74-106) H Calcium Level 10.7 MG/DL (8.5-10.1) H Total Bilirubin 0.9 MG/DL (0.2-1.0) Aspartate Amino Transf (AST/SGOT) 21 U/L (15-37) Alanine Aminotransferase (ALT/SGPT) 35 U/L (12-78) Alkaline Phosphatase 72 U/L (46-116) Total Protein 8.1 G/DL (6.4-8.2) Albumin 4.0 G/DL (3.4-5.0) Globulin 4.1 g/dL Albumin/Globulin Ratio 1.0 (1.0-2.7) Magnesium Level 2.2 MG/DL (1.8-2.4) POC Whole Blood Glucose 327 MG/DL (74-106) H 276 MG/DL (74-106) H Assessment/Plan Assessment/Plan Acute respiratory failure Ac/chr respiratory acidosis Sepsis Anemia COPD exacerb Acute myocardial ischemia Acute renal failure Resp support IVF Antimicrobials Bronchodilators/steroids Correct acid-base parameters and oxygenate Rohan Blanchard MD Mar 01, 2020 02:57
--- NOTE | 2020-03-01 02:59 | Cardiology Progress Note ---
Subjective DATE OF SERVICE: Feb 29, 2020 Less congested; off bipap No fever spikes Objective Last 24 Hour Vital Signs Date Time Temp Pulse Resp B/P (MAP) Pulse Ox O2 Delivery O2 Flow Rate FiO2 02/29/20 16:00 Nasal Cannula 3.0 02/29/20 13:57 94 20 96 Nasal Cannula 2.0 28 02/29/20 12:00 73 02/29/20 12:00 Nasal Cannula 3.0 02/29/20 12:00 97.7 96 18 164/77 (106) 98 02/29/20 10:02 169/77 02/29/20 09:00 Nasal Cannula 3.0 02/29/20 08:26 97.7 86 18 169/77 (107) 99 02/29/20 08:00 70 02/29/20 07:50 96 Nasal Cannula 2.0 28 02/29/20 04:00 98.1 81 18 143/80 (101) 99 02/29/20 04:00 64 02/29/20 03:09 Nasal Cannula 3.0 RHYTHM: ST LUNGS: bilateral rhonchi CARDIAC: normal rate, regular rhythm, normal S1 and S2 ABDOMEN: normal bowel sounds, G-Tube intact EXTREMITIES: No edema Laboratory Tests Test 02/29/20 05:35 02/29/20 05:39 02/29/20 05:47 02/29/20 11:49 Sodium Level 146 MMOL/L (136-145) H Potassium Level 3.7 MMOL/L (3.5-5.1) Chloride Level 107 MMOL/L (98-107) Carbon Dioxide Level 30 MMOL/L (21-32) Anion Gap 10 mmol/L (5-15) Blood Urea Nitrogen 46 mg/dL (7-18) H Creatinine 1.7 MG/DL (0.55-1.30) H Estimat Glomerular Filtration Rate 28.3 mL/min (>60) Glucose Level 332 MG/DL (74-106) H Calcium Level 10.7 MG/DL (8.5-10.1) H Total Bilirubin 0.9 MG/DL (0.2-1.0) Aspartate Amino Transf (AST/SGOT) 21 U/L (15-37) Alanine Aminotransferase (ALT/SGPT) 35 U/L (12-78) Alkaline Phosphatase 72 U/L (46-116) Total Protein 8.1 G/DL (6.4-8.2) Albumin 4.0 G/DL (3.4-5.0) Globulin 4.1 g/dL Albumin/Globulin Ratio 1.0 (1.0-2.7) Magnesium Level 2.2 MG/DL (1.8-2.4) POC Whole Blood Glucose 327 MG/DL (74-106) H 276 MG/DL (74-106) H Assessment/Plan Assessment/Plan Acute respiratory failure Ac/chr respiratory acidosis Sepsis Anemia COPD exacerb Acute myocardial ischemia Acute renal failure Resp support IVF Antimicrobials Bronchodilators/steroids Advance antiHTN Rohan Blanchard MD Mar 01, 2020 02:59
--- NOTE | 2020-03-01 12:42 | Discharge Summary ---
Discharge Summary Discharge Summary _ DATE OF ADMISSION: 02/24/2012 DATE OF DISCHARGE: 02/29/2020 DISCHARGED BY: Dr Kee REASON FOR ADMISSION: 89 years old female with past medical history of hypertension, asthma,/COPD, on home O2 , presented to emergency department due to respiratory distress She denied fever and chills. She denied productive cough. She denied chest pain. No nausea, vomiting , or diarrhea. Patient was extremely dyspneic and all information was obtained from patient's daughter. Upon evaluation patient was tachypneic , afebrile, pulse oximetry was stable on 3 L of oxygen via nasal cannula. Laboratory work-up revealed leukocytosis with WBC 15.4 , stable hemoglobin, hematocrit and platelet count. ABG on 3 L of oxygen revealed PCO2 46 , pH 7.39 , sat 90%. BUN 19, creatinine 1.4. Glucose 311. Troponin elevated 0.147, pro BNP 745. EKG revealed sinus tachycardia, no acute ischemic changes Lactic acid 1.6. Chest x-ray revealed findings consistent with COPD . Rapid COVID-19 was negative In emergency department patient received loading dose of steroid, nebulizing treatment, racemic epinephrine , magnesium and admitted for further management . CONSULTANTS: plate grainer Dr. Blanchard pulmonary Dr. Cochran reporting manager Dr. Bowers [facility] COURSE: Patient admitted to telemetry floor. Supplemental oxygen provided and titrated to keep pulse oximetry above 92% . Bronchodilator treatment provided. Patient started on IV steroids and empiric antibiotic. Patient required BiPAP . Patient was followed -up with ABG. DVT prophylaxis provided. Venous duplex bilateral lower extremity revealed no evidence of acute DVT. Repeated COVID 19 by PCR was negative . Blood cultures were negative . Home medication continued. Serial troponin trended down. Acute myocardial ischemia was likely due to respiratory failure and COPD exacerbation. Resource Engineer cardiac complaints. Possible NSTEMI type 2 . Antiplatelet therapy with aspirin provided. Antihypertensive regimen was uptitrated. Blood sugar was managed with insulin. Renal ultrasound revealed bilateral small kidney with cortical thinning , likely reflecting chronic medical renal disease. No obstructive uropathy. Steroids tapered fast and discontinued prior tod ischarge. Other nephrotoxic's avoided. Electrolytes corrected as needed. Per reporting manager , patient had a chronic kidney disease stage IV.. As patient clinically improved , she was able to be removed from the BiPAP . Pulse oximetry remained stable on oxygen via nasal cannula . Acute shortness of breath resolved. Blood pressure improved. Patient was stable for discharge home with home health services to follow. FINAL DIAGNOSES: Acute respiratory failure, requiring BiPAP Chronic hypercapnia and hypoxemia Sepsis COPD/asthma exacerbation Chronic kidney disease stage IV. Hypertensive urgency-improved Diabetes mellitus Acute myocardial ischemia Possible NSTEMI DISCHARGE MEDICATIONS: See Medication Reconciliation list. DISCHARGE INSTRUCTIONS: Patient was discharged home with home health services. Follow up with primary care provider in one week. I have been assigned to dictate discharge summary for this account. I was not involved in the patient's management. Meka Dial NP Mar 01, 2020 12:42
--- NOTE | 2020-03-01 21:19 | Cardiology Report ---
APPROVED REPORT EXAM: Two-dimensional and M-mode echocardiogram with Doppler and color Doppler. INDICATION CAD M-Mode DIMENSIONS IVSd0.6 (0.7-1.1cm)Left Atrium (MM)2.8 (1.6-4.0cm) LVDd3.9 (3.5-5.6cm)Aortic Root3.4 (2.0-3.7cm) PWd0.9 (0.7-1.1cm)Aortic Cusp Exc.1.9 (1.5-2.0cm) IVSs1.1 cm LVDs2.6 (2.5-4.0cm) PWs1.3 cm <Conclusion> Technically difficult study due to poor acoustical windows. Normal left ventricular chamber size, systolic function and wall motion to extent visualized. Left ventricular ejection fraction estimated to be 55-60 %. Anterior Echo-free space, may be due to pericardial fat or effusion. All other cardiac chamber sizes are within normal limits. Calcification of aortic valve with adequate cusp excursion. Thickened mitral valve leaflets with normal excursion. Mitral annulus and aortic root calcification. Pulmonic valve not well visualized. Normal tricuspid valve structure. IVC dilated at 2.3 cm without physiologic collapse suggestive of increased RA pressure. A color flow and spectral Doppler study was performed and revealed: Mild mitral regurgitation. Mitral diastolic velocities suggest reduced left ventricular relaxation c/w mild LV diastolic dysfunction (Grade I ). Trace tricuspid regurgitation. Tricuspid systolic velocities suggests peak right ventricular systolic pressure of 20 mmHg.
--- NOTE | 2020-03-01 22:10 | Cardiology Report ---
APPROVED REPORT EKG Measurement Heart [id number] <Conclusion> Sinus tachycardia Left ventricular hypertrophy with repolarization abnormality Cannot rule out Septal infarct, age undetermined Abnormal ECG
--- NOTE | 2020-03-02 03:13 | Cardiology Progress Note ---
Subjective DATE OF SERVICE: Feb 26, 2020 Less congested; on bipap No fever spikes Remains on steroid therapy, with elevated glucose levels. Objective ROS: unchanged from my note of 02/24/20 RHYTHM: ST LUNGS: bilateral rhonchi CARDIAC: normal rate, regular rhythm, normal S1 and S2 ABDOMEN: normal bowel sounds, G-Tube intact EXTREMITIES: No edema Assessment/Plan Assessment/Plan Acute respiratory failure Ac/chr respiratory acidosis Sepsis Anemia COPD exacerb Acute myocardial ischemia Acute renal failure DM with exacerbated hyperglycemia due to steroids Resp support IVF Antimicrobials Bronchodilators/steroids Advance antiHTN regiman Insulin coverage by Rohan Flores MD Mar 02, 2020 03:13
== END 2020-02-29 15:48 | disposition home or self-care (01) | DRG 720 ==
LOC: EMR 10:02 → EDBEDREQ 10:13 → 2W 11:36 → EDBEDREQ 12:22 → 2E 02-28 22:33
PROC: 5A09457 Assistance with Respiratory Ventilation, 24-96 Consecutive Hours, Continuous Positive Airway Pressure (ICD-10-PCS; principal; 2020-02-24)
DX: A41.9 Sepsis, unspecified organism (principal); J44.1 Chronic obstructive pulmonary disease with (acute) exacerbation; N17.9 Acute kidney failure, unspecified; E11.22 Type 2 diabetes mellitus with diabetic chronic kidney disease; I21.A1 Myocardial infarction type 2; J96.02 Acute respiratory failure with hypercapnia; E11.65 Type 2 diabetes mellitus with hyperglycemia; I16.0 Hypertensive urgency; I13.10 Hypertensive heart and chronic kidney disease without heart failure, with stage 1 through stage 4 chronic kidney disease, or unspecified chronic kidney disease; N18.4 Chronic kidney disease, stage 4 (severe); J45.902 Unspecified asthma with status asthmaticus; Z87.891 Personal history of nicotine dependence
CPT/HCPCS: 36415; 71045; 76770; 80048; 80053; 82550; 82803; 82962; 83605; 83735; 83880; 84484; 84550; 85025; 85610; 85730; 87040; 93005; 93306; 93970; 94640; 94660; 94664; 96365; 96372; 96375; 96376; 99291; 99292; J1815; J8499; S5561; U0002